=== PATIENT | female | born 1955 | race Caucasian/White ===

== ENCOUNTER 2023-08-04 09:05 | Outpatient (CLI) | payer MEDICARE, SELFPAY ==
--- NOTE | ~2023-08-04 | XR_ITS ---
Left Knee Technique: AP, lateral, and sunrise views were obtained. Clinical History: Pain Findings: No acute fracture or dislocation is seen. There is advanced tricompartment osteophytosis, w ith extensive osteophyte formation and medial compartment narrowing in particular. Possible small loo se body adjacent to the medial condyle distal femur. There are old, healed fracture deformities of th e proximal tibia and fibula, with intramedullary rods or pins in the tibia. Soft tissues are unremark able. No joint effusion is seen. Impression: No acute abnormalities. Severe tricompartmental osteoarthritis, as detailed above. Possible loose body, as above. Old, healed fractures of the proximal tibia and fibula, as detailed above. Reviewed, dictated and finalized at location M. Impression: No acute abnormalities. Severe tricompartmental osteoarthritis, as detailed above. Possible loose body, as above. Old, healed fractures of the proximal tibia and fibula, as detailed above.
--- NOTE | ~2023-08-04 | XR_ITS ---
Right Knee Technique: AP, lateral, and oblique views were obtained. Clinical History: Pain Findings: No fracture or dislocation is seen. There is advanced tricompartmental degenerative change with prominent ossified formation as well as medial compartment narrowing. There are old, healed frac ture deformities of the proximal fibular and tibial shafts. Intramedullary orthopedic alycia/pins are pr esent within the tibia.. Soft tissues are unremarkable. No joint effusion is seen. Impression: No acute abnormality evident. Advanced tricompartmental degenerative change, as detailed above. Old, healed fracture deformities of the proximal tibia and fibula, as detailed above. Reviewed, dictated and finalized at location M. Impression: No acute abnormality evident. Advanced tricompartmental degenerative change, as detailed above. Old, healed fracture deformities of the proximal tibia and fibula, as detailed above.
== END 2023-08-04 09:06 ==
PROVIDERS: PCP Family Medicine; Visit Provider Family Medicine
DX: M17.0 Bilateral primary osteoarthritis of knee (principal)
CPT/HCPCS: 73564

== ENCOUNTER 2024-08-10 20:45 | Inpatient (IN) | payer MEDICARE, SELFPAY ==
[2024-08-10] VITALS (8 sets, daily range): BP systolic 97–168; BP diastolic 67–110; PULSE 102–109; RESP 21–30; TEMP 36.7; O2SAT 97–99
--- NOTE | ~2024-08-10 | XR_ITS ---
XR chest 1V portable Ordering provider: Mary Ya PA-C History: 69 years Female with . sepsis . Comparison: December 18, 2005 FINDINGS: MEDIASTINUM: The cardiac silhouette is slightly enlarged. Congestive myron. LUNGS: No infiltrates, effusions or pneumothorax. OTHER: No free air under the diaphragm. IMPRESSION: Cardiomegaly. Congestive myron. No acute lung lesion seen. Reviewed, dictated and finalized at location A.
--- NOTE | ~2024-08-10 | CT_ITS ---
CT of the Abdomen and Pelvis: Indication: Edema, erythema, drainage from groin/abdomen Technique: 2.5 mm axial scans were obtained through the abdomen and pelvis following intravenous adm inistration of 100 cc of Omnipaque 350. Dose reduction technique was used on this scan by utilizing a utomated exposure control and iterative reconstruction technique. The dose-length product (DLP) was 1 541.93 mGy-cm. Findings: Scans through the lung bases are unremarkable. The liver, spleen, pancreas, gallbladder, left adrenal gland and kidneys are within normal limits. Co arse calcification in the right adrenal gland is suggestive of sequela of prior hemorrhage or infecti on. No evidence of aortic aneurysm. No retroperitoneal lymphadenopathy. No bowel obstruction or bowel wall thickening. There is no evidence to suggest acute appendicitis. Images through the pelvis were performed. Urinary bladder unremarkable. No pelvic mass seen, though t here is somewhat asymmetric enlargement of the right piriformis muscle as compared to the left. Shott y right inguinal lymph nodes are present. Impression: No abscess identified. Shotty right inguinal lymph nodes are present, nonspecific. Asymmetric enlargement right piriformis muscle as compared to left. This could reflect asymmetric lef t-sided atrophy versus hypertrophy of the right side. Correlate clinically. No distinct mass evident. Reviewed, dictated and finalized at location . Impression: No abscess identified. Shotty right inguinal lymph nodes are present, nonspecif ic. Asymmetric enlargement right piriformis muscle as compared to left. This could reflect asymmetric left-sided atrophy versus hypertrophy of the right side. Cor relate clinically. No distinct mass evident.
--- NOTE | 2024-08-10 21:18 | ED_ITS ---
HPI - Fall General Chief Complaint: Fall <Mary Ya PA-C - Last Filed: 08/12/24 11:18> Stated Complaint: fall <NURY Triana Last Filed: 08/12/24 11:18> Time Seen by Provider: 08/10/24 21:02 <NURY Triana Last Filed: 08/12/24 11:18> Source: patient <NURY Triana Last Filed: 08/12/24 11:18> Mode of arrival: EMS <NURY Triana Last Filed: 08/12/24 11:18> Limitations: no limitations <NURY Triana Last Filed: 08/12/24 11:18> History of Present Illness HPI Narrative: This is a 69 year old female that presents to the ER for generalized weakness, inability to care for herself. Hoarding conditions noted in the home. Has had to call EMS multiple times for assistance. Patient soaked in urine, feces covering her upon arrival. Reports a rash to her abdomen that has been ongoing over the last couple of weeks. <NURY Triana Last Filed: 08/12/24 11:18> Related Data Home Medications: Home Medications ?Medication ?Instructions ?Recorded ?Confirmed ?Last Taken ?Type aspirin 81 mg tablet,delayed 81 mg PO DAILY 02/19/19 08/11/24 Unknown History release albuterol sulfate 90 mcg/actuation 1 puff inhalation Q6H PRN 07/25/24 08/11/24 Unknown History aerosol inhaler shortness of breath or wheezing <NURY Triana Last Filed: 08/12/24 11:18> Allergies/Adverse Reactions: Allergies Allergy/AdvReac Type Severity Reaction Status Date / Time Penicillins Allergy Intermediate Unknown Verified 08/06/24 08:00 watermelon AdvReac Intermediate Unknown Verified 08/06/24 08:00 atorvastatin AdvReac muscle Verified 08/06/24 08:00 cramps <NURY Triana Last Filed: 08/12/24 11:18> Review of Systems 2 Review of Systems: CONSTITUTIONAL: Denies fever GASTROINTESTINAL: Denies abdominal pain, nausea, vomiting GENITOURINARY: Reports dysuria <Mary Ya PA-C - Last Filed: 08/12/24 11:18> All systems reviewed & are unremarkable except as noted in HPI and below < Mary Ya PA-C - Last Filed: 08/12/24 11:18> [facility] Past Medical History Medical History: Medical History (Updated 08/12/24 @ 11:16 by Mary Ya PA-C) Essential (primary) hypertension Iron deficiency anemia Prediabetes Vitamin D deficiency Hepatitis C antibody test negative (11/30/16) Esophageal reflux Meniere's disease, unspecified ear Mixed hyperlipidemia <Mary Ya PA-C - Last Filed: 08/12/24 11:18> Surgical History Surgical History: Surgical History (Updated 08/11/24 @ 03:41 by Eve Cunningham PA-C) History of surgery on lower extremity bilateral lower extremity surgery to correct genu varum <Mary Ya PA-C - Last Filed: 08/12/24 11:18> Family History Family History: Family History Father Family history of premature coronary heart disease Hypertension Family history of elevated blood lipids Grandparent Hypertension Mother Hypertension Family history of elevated blood lipids <Mary Ya PA-C - Last Filed: 08/12/24 11:18> Social History Social History: Social History (Updated 08/11/24 @ 03:19 by Eve Cunningham PA-C) Social History: Surrogate medical decision maker: Hortencia Loving, cousin ([phone]). Code status: Full code. Smoking status: Never smoker Second hand tobacco smoke exposure: No Alcohol intake: never Substance use: never Substance use type: does not use Do You Feel Safe in your Home?: Yes Lack of Transportation: No Lack of Food: Never True Current Housing: I Have Housing Concerned About Future Housing: No Difficulty Paying Gas/Electric Bills: No Difficulty Paying for Meds: No Currently Unemployed: No Education: Bachelor's Degree Difficulty w/ Childcare or Family Care: No Living arrangements: alone Additional living arrangements comments: The patient lives in her own home with her dog. 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 Spiritual care concerns: No Agree to blood products: Yes <Mary Ya PA-C - Last Filed: 08/12/24 11:18> Exam 2 Narrative: GENERAL: Well-appearing, well-nourished, and in no acute distress. HEAD: Normocephalic, atraumatic. EYES: EOMI. ENT: Nares clear, no rhinorrhea or epistaxis. Mucous membranes moist. Oropharynx without tonsillar hypertrophy exudate or other lesions. NECK: Supple. No adenopathy or masses. CHEST: Clear to auscultation. No respiratory distress. No wheezes rales or rhonchi HEART: Regular rate and rhythm. No murmur heard. Normal peripheral pulses. ABDOMEN: Soft, nontender, nondistended, normal active bowel sounds. EXTREMITIES: Normal range of motion. No edema. SKIN: Warm, dry. Beefy red rash with scattered ulcerations to the mid abdomen into the groin and down to the mid thigh NEURO: No focal deficits. Alert and oriented x3. PSYCH: Normal mood and affect <Mary Ya PA-C - Last Filed: 08/12/24 11:18> Course Course Emergency Course: Patient was updated on her blood workup, need for admission. Pending CT scan results, care taken over by Dr. Berrios <Mary Ya PA-C - Last Filed: 08/12/24 11:18> Vital Signs Vital signs: Vital Signs Temperature 98.1 F 08/10/24 21:00 Pulse Rate 107 H 08/10/24 21:00 Respiratory Rate 28 H 08/10/24 21:00 Blood Pressure 107/67 08/10/24 21:00 Pulse Oximetry 98 08/10/24 21:00 Oxygen Delivery Room Air 08/10/24 21:00 Temperature 98.4 F 08/12/24 03:22 Pulse Rate 64 08/12/24 08:37 Respiratory Rate 20 08/12/24 03:22 Blood Pressure 136/76 08/12/24 03:22 Pulse Oximetry 95 08/12/24 03:22 Oxygen Delivery Room Air 08/12/24 10:16 Fraction of Inspired Oxygen 08/11/24 20:50 <Mary Ya PA-C - Last Filed: 08/12/24 11:18> Vital Signs Temperature 98.1 F 08/10/24 21:00 Pulse Rate 107 H 08/10/24 21:00 Respiratory Rate 28 H 08/10/24 21:00 Blood Pressure 107/67 08/10/24 21:00 Pulse Oximetry 98 08/10/24 21:00 Oxygen Delivery Room Air 08/10/24 21:00 Temperature 98.4 F 08/12/24 03:22 Pulse Rate 64 08/12/24 08:37 Respiratory Rate 20 08/12/24 03:22 Blood Pressure 136/76 08/12/24 03:22 Pulse Oximetry 95 08/12/24 03:22 Oxygen Delivery Room Air 08/12/24 10:16 Fraction of Inspired Oxygen 21 08/11/24 20:50 <Huong Berrios MD - Last Filed: 08/11/24 03:26> MDM - Fall MDM Narrative Medical decision making narrative: Patient presents here from home due to not being able to get back up, per EMS had been found practically fused to the couch; nursing staff here had to use a knife to cut her underwear off due to how it was covered with old urine, secretions. Patient had not been able to get up on her own. On exam there is a extensive rash covering her abdominal wall and down into her intertriginous folds which are slightly tender to palpation. Broad workup initiated notable for white count 13.8, urinalysis without any obvious UTI, CT showing cellulitis thankfully without signs of Brown's gangrene. I do feel patient needs to be admitted at this time given her extensive skin infection and obvious need for help in caring for herself. Patient agreeable to plan. Discussed with hospitalist for admission. <Huong Berrios MD - Last Filed: 08/11/24 03:26> Lab Data Attestation: I reviewed the patient's lab results. <Mary Ya PA-C - Last Filed: 08/12/24 11:18> Result diagrams: 08/12/24 04:47 08/12/24 04:47 <Mary Ya PA-C - Last Filed: 08/12/24 11:18> Labs: Lab Results 08/10/24 08/10/24 08/10/24 Range/Units 21:54 21:55 22:03 WBC 13.8 H (4.5-10.0) K/mm3 RBC 4.57 (4.2-5.4) M/mm3 Hgb 11.3 L (12.0-15.0) g/dL Hct 36.8 L (37.0-47.0) % MCV 80.5 (80-100) fl MCH 24.7 L (26-34) pg MCHC 30.7 L (32-36) g/dl RDW 16.6 H (11.5-14.5) % Plt Count 561 H (150-375) k/mm3 MPV 9.1 (7.4-10.4) fl Immature Gran % (Auto) 1.2 H (0-0.5) % Neut % (Auto) 83.9 H (45.5-73.1) % Lymph % (Auto) 7.0 L (18.3-44.2) % [place] % (Auto) 7.2 (2.6-8.5) % Eos % (Auto) 0.2 (0-4.4) % Baso % (Auto) 0.5 (0.2-1.2) % Lymph # (Auto) 0.97 (0.9-3.2) K/mm3 [place] # (Auto) 1.0 H (0.1-0.6) K/mm3 Eos # (Auto) 0.0 (0-0.3) K/mm3 Baso # (Auto) 0.1 (0.0-0.1) K/mm3 Abs Immat Gran (auto) 0.17 H (0.00-0.031) K/mm3 Absolute Neuts (auto) 11.6 H (1.3-6.7) K/mm3 Absolute Nucleated RBC 0.000 (0.0-0.012) K/mm3 Nucleated RBC % 0.0 (0.0-0.2) % PT 14.8 H (11.1-14.7) Seconds INR 1.1 APTT 31.5 (22.3-36.8) Seconds Sodium 132 L (137-145) mmol/L Potassium 4.0 (3.4-5.0) mmol/L Chloride 100 (98-107) mmol/L Carbon Dioxide 22 (22-30) mmol/L Anion Gap 10 (4-12) mmol/L BUN 16 (7-17) mg/dL Creatinine 0.80 (0.7-1.0) mg/dL Estim Creat Clear Calc 74 ml/min Estimated GFR > 60 (59 - ) Glucose 136 H (65-110) mg/dL Lactic Acid 1.6 (0.7-2.0) mmol/L Calcium 8.6 (8.4-10.2) mg/dL Total Bilirubin 0.9 (0.2-1.3) mg/dL AST 105 H (14-36) U/L ALT 34 (6-35) U/L Alkaline Phosphatase 81 (38-126) U/L C-Reactive Protein 15.5 H (<1.0) mg/dL Total Protein 7.0 (6.3-8.2) g/dL Albumin 3.4 L (3.5-5.1) g/dL Urine Color Dark yellow (Yellow) Urine Appearance Cloudy H (Clear) Urine pH 5.5 (5.0-9.0) Ur Specific Wisner 1.029 (1.001-1.035) Urine Protein 2+ H (Negative) mg/dL Urine Glucose (UA) Trace H (Negative) mg/dL Urine Ketones 1+ H (Negative) mg/dL Ur Blood (Man) Negative (Negative) Urine Nitrate Negative (Negative) Urine Bilirubin 2+ H (Negative) Urine Urobilinogen 1.0 (<2.0) mg/dL Add Ur Microanalysis Reviewed Leukocyte Esterase Rfl Trace H (Negative) LUCIANO/UL Urine RBC 6-10 H (0-2) /hpf Urine WBC 6-10 H (0-3) /hpf Ur Squamous Epith Cells Occasional (Few) /hpf Urine Bacteria None seen /hpf Urine Casts >20 Hyaline Casts Present (None) /lpf Urine Mucus Present /lpf <Mary Ya PA-C - Last Filed: 08/12/24 11:18> Lab Results 08/10/24 08/10/24 08/10/24 Range/Units 21:54 21:55 22:03 WBC 13.8 H (4.5-10.0) K/mm3 RBC 4.57 (4.2-5.4) M/mm3 Hgb 11.3 L (12.0-15.0) g/dL Hct 36.8 L (37.0-47.0) % MCV 80.5 (80-100) fl MCH 24.7 L (26-34) pg MCHC 30.7 L (32-36) g/dl RDW 16.6 H (11.5-14.5) % Plt Count 561 H (150-375) k/mm3 MPV 9.1 (7.4-10.4) fl Immature Gran % (Auto) 1.2 H (0-0.5) % Neut % (Auto) 83.9 H (45.5-73.1) % Lymph % (Auto) 7.0 L (18.3-44.2) % [place] % (Auto) 7.2 (2.6-8.5) % Eos % (Auto) 0.2 (0-4.4) % Baso % (Auto) 0.5 (0.2-1.2) % Lymph # (Auto) 0.97 (0.9-3.2) K/mm3 [place] # (Auto) 1.0 H (0.1-0.6) K/mm3 Eos # (Auto) 0.0 (0-0.3) K/mm3 Baso # (Auto) 0.1 (0.0-0.1) K/mm3 Abs Immat Gran (auto) 0.17 H (0.00-0.031) K/mm3 Absolute Neuts (auto) 11.6 H (1.3-6.7) K/mm3 Absolute Nucleated RBC 0.000 (0.0-0.012) K/mm3 Nucleated RBC % 0.0 (0.0-0.2) % PT 14.8 H (11.1-14.7) Seconds INR 1.1 APTT 31.5 (22.3-36.8) Seconds Sodium 132 L (137-145) mmol/L Potassium 4.0 (3.4-5.0) mmol/L Chloride 100 (98-107) mmol/L Carbon Dioxide 22 (22-30) mmol/L Anion Gap 10 (4-12) mmol/L BUN 16 (7-17) mg/dL Creatinine 0.80 (0.7-1.0) mg/dL Estim Creat Clear Calc 74 ml/min Estimated GFR > 60 (59 - ) Glucose 136 H (65-110) mg/dL Lactic Acid 1.6 (0.7-2.0) mmol/L Calcium 8.6 (8.4-10.2) mg/dL Total Bilirubin 0.9 (0.2-1.3) mg/dL AST 105 H (14-36) U/L ALT 34 (6-35) U/L Alkaline Phosphatase 81 (38-126) U/L C-Reactive Protein 15.5 H (<1.0) mg/dL Total Protein 7.0 (6.3-8.2) g/dL Albumin 3.4 L (3.5-5.1) g/dL Urine Color Dark yellow (Yellow) Urine Appearance Cloudy H (Clear) Urine pH 5.5 (5.0-9.0) Ur Specific Wisner 1.029 (1.001-1.035) Urine Protein 2+ H (Negative) mg/dL Urine Glucose (UA) Trace H (Negative) mg/dL Urine Ketones 1+ H (Negative) mg/dL Ur Blood (Man) Negative (Negative) Urine Nitrate Negative (Negative) Urine Bilirubin 2+ H (Negative) Urine Urobilinogen 1.0 (<2.0) mg/dL Add Ur Microanalysis Reviewed Leukocyte Esterase Rfl Trace H (Negative) LUCIANO/UL Urine RBC 6-10 H (0-2) /hpf Urine WBC 6-10 H (0-3) /hpf Ur Squamous Epith Cells Occasional (Few) /hpf Urine Bacteria None seen /hpf Urine Casts >20 Hyaline Casts Present (None) /lpf Urine Mucus Present /lpf <Huong Berrios MD - Last Filed: 08/11/24 03:26> Imaging Data Radiologist's impression: ITS Impressions Chest X-Ray 08/10/24 22:04 IMPRESSION: Cardiomegaly. Congestive myron. No acute lung lesion seen. CT of the Abdomen and Pelvis: Indication: Edema, erythema, drainage from groin/abdomen Technique: 2.5 mm axial scans were obtained through the abdomen and pelvis following intravenous administration of 100 cc of Omnipaque 350. Dose reduction technique was used on this scan by utilizing automated exposure control and iterative reconstruction technique. The dose-length product (DLP) was 1541.93 mGy-cm. Findings: Scans through the lung bases are unremarkable. The liver, spleen, pancreas, gallbladder, left adrenal gland and kidneys are within normal limits. Coarse calcification in the right adrenal gland is suggestive of sequela of prior hemorrhage or infection. No evidence of aortic aneurysm. No retroperitoneal lymphadenopathy. No bowel obstruction or bowel wall thickening. There is no evidence to suggest acute appendicitis. Images through the pelvis were performed. Urinary bladder unremarkable. No pelvic mass seen, though there is somewhat asymmetric enlargement of the right piriformis muscle as compared to the left. Shotty right inguinal lymph nodes are present. Impression: No abscess identified. Shotty right inguinal lymph nodes are present, nonspecific. Asymmetric enlargement right piriformis muscle as compared to left. This could reflect asymmetric left-sided atrophy versus hypertrophy of the right side. Correlate clinically. No distinct mass evident. <Mary Ya PA-C - Last Filed: 08/12/24 11:18> Critical Care Time Critical Care Time Critical Care Time: Yes <Huong Berrios MD - Last Filed: 08/11/24 03:26> Total Critical Care Time: 35 <Mary Ya PA-C - Last Filed: 08/12/24 11:18> 31 <Huong Berrios MD - Last Filed: 08/11/24 03:26> Discharge Plan Discharge Clinical Impression: Adult failure to thrive Cellulitis Qualifiers: Site of cellulitis: trunk Site of cellulitis of trunk: abdominal wall Qualified Code(s): L03.311 - Cellulitis of abdominal wall <Mary Ya PA-C - Last Filed: 08/12/24 11:18> Patient Disposition: Still a Patient <NURY Triana Last Filed: 08/12/24 11:18> Condition: Stable <NURY Triana Last Filed: 08/12/24 11:18>
[2024-08-10 22:02] LABS: Basophils Absolute Auto 0.1 K/mm3 (0.0-0.1); Basophils Percent Auto 0.5 % (0.2-1.2); Eosinophils Percent Auto 0.2 % (0-4.4); Hematocrit 36.8 % (37.0-47.0); Hemoglobin 11.3 g/dL (12.0-15.0); Immature Granulocyte Absolute 0.17 K/mm3 (0.00-0.031); Immature Granulocyte Percent A 1.2 % (0-0.5); Lymphocytes Absolute Auto 0.97 K/mm3 (0.9-3.2); Mean Corpuscular HGB Conc 30.7 g/dl (32-36); Mean Corpuscular Hemoglobin 24.7 pg (26-34); Mean Corpuscular Volume 80.5 fl (80-100); Mean Platelet Volume 9.1 fl (7.4-10.4); Monocytes Percent Auto 7.2 % (2.6-8.5); Neutrophils Absolute Auto 11.6 K/mm3 (1.3-6.7); Neutrophils Percent Auto 83.9 % (45.5-73.1); Platelet Count Result 561 k/mm3 (150-375); Red Blood Count 4.57 M/mm3 (4.2-5.4); Red Cell Distribution Width 16.6 % (11.5-14.5); White Blood Count 13.8 K/mm3 (4.5-10.0)
[2024-08-10 22:11] LABS: Lactic Acid Reflex 1.6 mmol/L (0.7-2.0)
[2024-08-10 22:17] LABS: Alanine Aminotransferase 34 U/L (6-35); Albumin Level 3.4 g/dL (3.5-5.1); Alkaline Phosphatase 81 U/L (38-126); Anion Gap 10 mmol/L (4-12); Aspartate Amino Transferase 105 U/L (14-36); Bilirubin,Total 0.9 mg/dL (0.2-1.3); Blood Urea Nitrogen 16 mg/dL (7-17); Calcium 8.6 mg/dL (8.4-10.2); Carbon Dioxide 22 mmol/L (22-30); Chloride 100 mmol/L (98-107); Estimated CRCL calculation 74 ml/min; Estimated Glomerular Filt Rate > 60; Glucose 136 mg/dL (65-110); Sodium 132 mmol/L (137-145)
[2024-08-10 22:23] LABS: INR 1.1; Prothrombin Time 14.8 Seconds (11.1-14.7)
[2024-08-10 22:24] LABS: Partial Thromboplastin Time 31.5 Seconds (22.3-36.8)
[2024-08-10 22:27] LABS: Add Urine Microscopic? YES; Appearance Urine Cloudy (Clear); Bacteria Urine None Seen /hpf; Bilirubin Urine 2+ (Negative); Blood Urine Negative (Negative); Color Urine Dark Yellow (Yellow); Glucose Urine UA Trace mg/dL (Negative); Hyaline Casts Urine Present /lpf; Ketones Urine 1+ mg/dL (Negative); Leukocyte Esterase Ur Trace LEU/UL (Negative); Mucus Urine Present /lpf; Need Manual Microscopic Reviewed; Nitrate Urine Negative (Negative); Non Pathogenic Casts >20; Protein Urine 2+ mg/dL (Negative); Specific Grav Ur 1.029 (1.001-1.035); Squamous Epithelial Cell Urine Occasional /hpf (Few); pH Urine 5.5 (5.0-9.0)
[2024-08-10 22:28] LABS: CRP 15.5 mg/dL (<1.0)
[2024-08-10] MEDS: SODIUM CHLORIDE 0.9% IV 1,000 ML 999 ML IV CONT (23:36)
[2024-08-10] MEDS: FLUCONAZOLE 150 MG TABLET PO (23:37)
[2024-08-10] MEDS: ceFAZolin 1 GM/NS 50 ML 1 GM/50 ML BAG IVPB (23:46)
[2024-08-11] VITALS (11 sets, daily range): BP systolic 125–175; BP diastolic 76–111; PULSE 74–105; RESP 17–31; TEMP 36.1–36.5; O2SAT 94–98; BMI 52.7
--- NOTE | 2024-08-11 02:45 | P.HP_ITS ---
H&P: HPI History of Present Illness Date/Time: 08/11/24 02:45 Chief Complaint: Fall. Narrative: This is a pleasant 69-year-old female with prediabetes, hypertension, hyperlipidemia, and Meniere's disease who presented to the emergency department via EMS from home for evaluation after a fall. EMS has been called house several times for lift assist and last evening she allowed them to bring her to the hospital as she is just not feeling well. She believes that her falls are mostly due to her left knee giving out. She uses a cane when out in the community but she admits to hoarding conditions in her house which precludes her from using it inside the home. She has noticed redness and swelling of the skin on her lower abdomen and groin with malodorous discharge that has been ongoing for an extended period of time however it has been worse in the last several weeks. It is exquisitely tender to even mild palpation. With further questioning she admits that she has difficulties getting to the bathroom due to her home situation and that is not unusual for her to be incontinent. She arrived to the emergency department in underwear which was soiled with stool and urine. She denies fever, chills, sweats, nausea, vomiting, diarrhea, and dysuria. She also denies focal weakness and paresthesias. No syncope or near syncope. In the ED: Vital signs on arrival include a temperature of 98.1?, blood pressure 107/67, pulse 107, respiratory 20, SpO2 98% on room air. Labs were significant for WBC count of 13.8, hemoglobin 11.3, platelet 561, sodium 132, glucose 136, lactic acid 1.6, AST 105, CRP 15.5. Urinalysis is positive for 2+ protein, trace glucose, 1+ ketones, trace leukocyte esterase, 6 to 10 RBC and WBC, and occasional squamous cells. No bacteria seen on microscopy. CT scan showed edema or cellulitis of intravenous folds without tissue abscess or emphysema, possible cystitis. She was given cefazolin 1 g and fluconazole 150 mg and she is being admitted in this setting for further treatment. Review of Systems Review of Systems: 12 systems were reviewed and are negativ e except for as per HPI. [facility] Past Medical History Medical History (Updated 08/11/24 @ 03:26 by Eve G Gerling, PA-C) Essential (primary) hypertension Iron deficiency anemia Prediabetes Vitamin D deficiency Hepatitis C antibody test negative (11/30/16) Esophageal reflux Meniere's disease, unspecified ear Mixed hyperlipidemia Surgical History Surgical History (Updated 08/11/24 @ 03:41 by Eve Cunningham PA-C) History of surgery on lower extremity bilateral lower extremity surgery to correct genu varum Family History Family History Father Family history of premature coronary heart disease Hypertension Family history of elevated blood lipids Grandparent Hypertension Mother Hypertension Family history of elevated blood lipids Social History Social History (Updated 08/11/24 @ 03:19 by Eve Cunningham PA-C) Social History: Surrogate medical decision maker: Hortencia Inder, cousin ([phone]). Code status: Full code. Smoking status: Never smoker Second hand tobacco smoke exposure: No Alcohol intake: never Substance use: never Substance use type: does not use Do You Feel Safe in your Home?: Yes Lack of Transportation: No Lack of Food: Never True Current Housing: I Have Housing Concerned About Future Housing: No Difficulty Paying Gas/Electric Bills: No Difficulty Paying for Meds: No Currently Unemployed: No Education: Bachelor's Degree Difficulty w/ Childcare or Family Care: No Living arrangements: alone Additional living arrangements comments: The patient lives in her own home with her dog. 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 Agree to blood products: Yes Meds Home Medications and Allergies Home Medications ?Medication ?Instructions ?Recorded ?Confirmed ?Type aspirin 81 mg tablet,delayed 81 mg PO DAILY 02/19/19 07/25/24 History release furosemide 20 mg tablet 20 mg PO QAM PRN edema #90 tabs 05/02/23 07/25/24 Rx pravastatin 20 mg tablet 20 mg PO QHS #90 tabs 05/02/23 07/25/24 Rx clindamycin phosphate 1 % topical 1 applic topical BID #60 grams 08/11/23 07/25/24 Rx gel celecoxib 200 mg capsule See Rx Instructions .Route 11/27/23 07/25/24 Rx .COMPLEX #30 caps azelastine 137 mcg (0.1 %) nasal 2 spray intranasal Q12H #30 mL 12/19/23 07/25/24 Rx spray Kathy-D 12 Hour 60 mg-120 mg See Rx Instructions .Route 12/25/23 07/25/24 Rx tablet,extended release .COMPLEX #60 tabs (fexofenadine-pseudoephedrine) ergocalciferol (vitamin D2) 1,250 See Rx Instructions .Route 12/25/23 07/25/24 Rx mcg (50,000 unit) capsule .COMPLEX #12 caps metoclopramide HCl 10 mg tablet See Rx Instructions .Route 01/08/24 07/25/24 Rx .COMPLEX #270 tabs betamethasone dipropionate 0.05 % 1 applic topical DAILY PRN itching 02/27/24 07/25/24 Rx topical ointment #45 grams esomeprazole magnesium 40 mg 40 mg PO DAILY #90 caps 02/27/24 07/25/24 Rx capsule,delayed release telmisartan 40 mg tablet 40 mg PO DAILY #90 tabs 02/27/24 07/25/24 Rx amlodipine 2.5 mg tablet See Rx Instructions .Route 03/25/24 07/25/24 Rx .COMPLEX #90 tabs carisoprodol 350 mg tablet 350 mg PO TID #270 tabs 06/28/24 07/25/24 Rx ferrous sulfate 324 mg (65 mg 324 mg PO BID #180 tabs 07/11/24 07/25/24 Rx iron) tablet,delayed release albuterol sulfate 90 mcg/actuation inhalation 07/25/24 07/25/24 History aerosol inhaler propranolol 10 mg tablet 10 mg PO Q12H #180 tabs 07/25/24 07/25/24 Rx clotrimazole 1 % topical cream See Rx Instructions .Route 08/05/24 Rx .COMPLEX #45 grams meclizine 25 mg tablet See Rx Instructions .Route 08/05/24 Rx .COMPLEX #120 tabs Allergies Allergy/AdvReac Type Severity Reaction Status Date / Time Penicillins Allergy Intermediate Unknown Verified 08/06/24 08:00 watermelon AdvReac Intermediate Unknown Verified 08/06/24 08:00 atorvastatin AdvReac muscle Verified 08/06/24 08:00 cramps Vital Signs Vital Signs - 24 hr 08/10/24 21:00 08/10/24 21:01 08/10/24 21:15 Temperature 98.1 F Pulse Rate 107 H 109 H 106 H Respiratory Rate 28 H 28 H 30 H Blood Pressure 107/67 107/67 100/85 Pulse Oximetry 98 98 97 Oxygen Delivery Room Air 08/10/24 21:31 08/10/24 21:50 08/10/24 21:51 Temperature Pulse Rate 102 H 103 H 102 H Respiratory Rate 27 H 30 H 28 H Blood Pressure 115/78 120/85 Pulse Oximetry 98 98 Oxygen Delivery 08/10/24 22:15 08/10/24 23:31 08/11/24 01:16 Temperature Pulse Rate 109 H 102 H 104 H Respiratory Rate 30 H 21 H 31 H Blood Pressure 97/75 L 168/110 H 167/111 H Pulse Oximetry 99 97 98 Oxygen Delivery Exam Narrative: General: Well-developed, nontoxic-appearing female supine in bed in no acute distress. Weight: 112.7 kg. BMI: 41.3. HEENT: PERRL, EOMI. Sclera anicteric. Oral mucosa moist. Crowded oropharynx. Neck: Supple. Limited due to neck circumference. Respiratory: Lungs are clear to auscultation bilaterally. Cardiovascular: Regular rate and rhythm with S1-S2. Gastrointestinal: Abdomen is soft and morbidly obese with positive bowel s ounds. Skin: Warm and dry. Very large area erythema and irritation throughout the lower abdomen, more so on the right, extending to the intertriginous regions and on to the upper right lower extremity. There is weeping and evidence of yeast throughout the folds. This area is exquisitely tender to palpation. Redness blanches. No warmth. Extremities: No cyanosis or clubbing. Mild lower extremity edema. Neurological: Alert. Cranial nerves 2-12 are grossly intact. Speech is clear. No facial asymmetry. Generalized weakness without gross focal findings. Mild tremor of the right upper extremity which is chronic. Psychiatric: Pleasant and cooperative with appropriate mood and affect. H&P: Results Labs Labs: Short CBC 08/10/24 Range/Units 21:54 WBC 13.8 H (4.5-10.0) K/mm3 Hgb 11.3 L (12.0-15.0) g/dL Hct 36.8 L (37.0-47.0) % Plt Count 561 H (150-375) k/mm3 [facility] 08/10/24 21:55 Sodium 132 L Potassium 4.0 Chloride 100 Carbon Dioxide 22 BUN 16 Creatinine 0.80 Glucose 136 H Calcium 8.6 Liver Function 08/10/24 Range/Units 21:55 Total Bilirubin 0.9 (0.2-1.3) mg/dL AST 105 H (14-36) U/L ALT 34 (6-35) U/L Alkaline Phosphatase 81 (38-126) U/L Albumin 3.4 L (3.5-5.1) g/dL Urine 08/10/24 Range/Units 22:03 Urine Color Dark yellow (Yellow) Urine Appearance Cloudy H (Clear) Urine pH 5.5 (5.0-9.0) Ur Specific [place] 1.029 (1.001-1.035) Urine Protein 2+ H (Negative) mg/dL Urine Glucose (UA) Trace H (Negative) mg/dL Assessment and Plan Assessment and plan (1) Cellulitis: Code(s): L03.90 - Cellulitis, unspecified Status: Acute (2) Intertriginous candidiasis: Code(s): B37.2 - Candidiasis of skin and nail Status: Acute (3) Generalized weakness: Code(s): R53.1 - Weakness Status: Acute (4) Incontinence associated dermatitis: Code(s): L25.8 - Unspecified contact dermatitis due to other agents; R32 - Unspecified urinary incontinence Status: Acute (5) Prediabetes: Code(s): R73.03 - Prediabetes Status: Acute (6) Iron deficiency anemia: Code(s): D50.9 - Iron deficiency anemia, unspecified Status: Acute (7) Essential (primary) hypertension: Code(s): I10 - Essential (primary) hypertension Status: Acute Plan The patient presented to the emergency department from home for evaluation after multiple falls as detailed in HPI. Labs, imaging, EKG, and all reports were personally reviewed. Patient reviewed her falls to her left knee going up but admits that is difficult for her to get around her home due to hoarding conditions. I presume she will need to have her home cleaned prior to going back and she would likely benefit from rehab placement on discharge. Continue cefazolin for cellulitis. She received a dose of p.o. fluconazole in the ED. wound nurse has been consulted for further recommendations. Eventually she will need to get up with PT/OT. Blood pressures have been stable thus far and will be monitored. Her home medications will be reviewed and resumed as appropriate. Findings and treatment plan were discussed with the patient. Questions were solicited and answered to satisfaction. The patient's medical management will be taken over by the hospitalist team in a.m. Quality VTE Prophylaxis VTE prophylaxis: pharmacologic ordered The patient has been admitted under observation status. Hospitalist MIPS Advance Care Plan I have confirmed that the patient's Advanced Care Plan is present, code status is documented, or surrogate decision maker is listed in patient medical record.: Yes Medication Reconciliation I have utilized all available resources to obtain, update and review the patients current medications (includes all prescriptions, OTC, herbals, cannabis, and nutritional supplements).: Yes
[2024-08-11] MEDS: ENOXAPARIN 40 MG/0.4 ML SYRINGE SUB-Q (05:09)
[2024-08-11] MEDS: MECLIZINE HCL 25 MG TABLET PO ×5 (05:09→22:36)
[2024-08-11] MEDS: ACETAMINOPHEN 325 MG TABLET 650 MG PO (05:09)
--- NOTE | 2024-08-11 05:10 | ADMGEN ---
This patient, Catie Garcia, was admitted to Medical Room 249-01. Patient/family oriented to hospital policies and general routines including ID bracelet, bed and alarms, visiting hours, pain management, procedures, bathroom and other care routines, personal items, smoking policy, room service/diet, and visiting hours. Information on how to activate the Rapid Response Team has been discussed. Patient/Family are encouraged to report perceived risks to care and to ask questions if they do not understand what they are told or what they should do.
[2024-08-11 06:49] LABS: Alanine Aminotransferase 32 U/L (6-35); Albumin Level 2.7 g/dL (3.5-5.1); Alkaline Phosphatase 74 U/L (38-126); Anion Gap 7 mmol/L (4-12); Aspartate Amino Transferase 87 U/L (14-36); Bilirubin,Total 0.6 mg/dL (0.2-1.3); Blood Urea Nitrogen 15 mg/dL (7-17); Calcium 8.3 mg/dL (8.4-10.2); Carbon Dioxide 20 mmol/L (22-30); Chloride 104 mmol/L (98-107); Creatine Kinase 3135 U/L (30-135); Estimated Glomerular Filt Rate > 60; Glucose 112 mg/dL (65-110); Potassium 3.9 mmol/L (3.4-5.0); Sodium 131 mmol/L (137-145)
--- NOTE | 2024-08-11 07:37 | PM.IMPN ---
Progress Note: A&P Assessment and Plan (1) Cellulitis: Code(s): L03.90 - Cellulitis, unspecified Status: Acute Assessment and Plan: Redness and swelling of the skin on her lower abdomen and groin with malodorous discharge. CT abdomen/pelvis showed no abscess but did note asymmetric enlargement right piriformis muscle as compared to left. This could reflect asymmetric left-sided atrophy versus hypertrophy of the right side - Antibiotic: Ancef started on 08/10 - Blood cultures obtained on 08/10: pending - Groin wound culture: pending - Monitor vital signs, I&Os, neuro status and patient is a fall risk - Monitor serum electrolytes, CBC, cultures, WBC and temp curve - Wound consulted, appreciate recommendations (2) Intertriginous candidiasis: Code(s): B37.2 - Candidiasis of skin and nail Status: Acute Assessment and Plan: Redness and swelling of the skin on her lower abdomen and groin with malodorous discharge. Received a dose of p.o. fluconazole in the ED. Wound nurse has been consulted for further recommendations. (3) Generalized weakness: Code(s): R53.1 - Weakness Status: Acute Assessment and Plan: Falls are mostly due to her left knee giving out as she is unable to use her cane in the home secondary to hoarding conditions. CK elevated on admission at 3135, received 1L NS. Electrolytes and kidney function stable. Knee, left XR on 08/03 showed no acute abnormalities but severe tricompartmental osteoarthritis and old healed fractures of keshawn proximal tibia and fibula CT abdomen/pelvis showed no abscess but did note asymmetric enlargement right piriformis muscle as compared to left. This could reflect asymmetric left-sided atrophy versus hypertrophy of the right side PT/OT consulted Patient will likely need and benefit from rehab placement and she will need her home cleaned prior to return Was to obtain a cortisone shot with Dr. Ahuja on . Discussed patient with Ortho in agreement that the cortisone shot is likely not the best course of action at this time given patient's cocurrent infection. Will continue to monitor and potentially get the shot later on admission if infection improves. (4) Incontinence associated dermatitis: Code(s): L25.8 - Unspecified contact dermatitis due to other agents; R32 - Unspecified urinary incontinence Status: Acute Assessment and Plan: She admitted that she has difficulties getting to the bathroom due to her home situation and that is not unusual for her to be incontinent. Per chart review patient arrived to the emergency department in underwear which was soiled with stool and urine. Urinalysis is positive for 2+ protein, trace glucose, 1+ ketones, trace leukocyte esterase, 6-10 RBC and WBC, and occasional squamous cells. No bacteria seen. Given fluconazole in ED Started on Ancef Urine culture pending (5) Prediabetes: Code(s): R73.03 - Prediabetes Status: Acute Assessment and Plan: - monitor glucose levels with CMP, well controlled at this time - home medication - none, trying to control with diet/exercise - A1C 6.4 on 07/10/24 (6) Iron deficiency anemia: Code(s): D50.9 - Iron deficiency anemia, unspecified Status: Acute Assessment and Plan: H/H 11.3/36.8 on admission, appears around baseline Resumed patients iron supplementation No signs of active bleeding Monitor (7) Essential (primary) hypertension: Code(s): I10 - Essential (primary) hypertension Status: Acute Assessment and Plan: Chronic, continue home medications - amlodipine 2.5 mg daily - propranolol 10 mg BID, per PCP note more related to patients tremors - telmisartan 40 mg daily - blood pressures stable, continue to monitor Time Spent With Patient Time with patient: 25 - 35 minutes Subjective Date/time seen: 08/11/24 07:37 Interval history: 69-year-old female with prediabetes, hypertension, hyperlipidemia, and Meniere's disease who presented to the hospital via EMS from home for evaluation after a fall. Believes falls are mostly due to her left knee giving out as she is unable to use her cane in the home secondary to hoarding conditions. She also noted redness and swelling of the skin on her lower abdomen and groin with malodorous discharge. She admitted that she has difficulties getting to the bathroom due to her home situation and that is not unusual for her to be incontinent. Patient is pleasant sitting up in her bed with family at bedside. She states that she fell twice prior to coming in both times she was down for at least 4 hours prior to found. She denies feeling dizzy or lightheaded prior to the falls. Denies any loss of consciousness or hitting her head. She continues to endorse left knee pain stating that she was to obtain a cortisone shot with Dr. Ahuja on . Discussed patient with Ortho an agreement that the cortisone shot is likely not the best course of action at this time given patient's cocurrent infection. Will continue to monitor and potentially get the shot later on admission if infection improves. Strongly encouraged patient to work with physical therapy and discussed with her that she will likely require placement for increased strength building and at this point house is unsafe to go home given the known hoarding. She states understanding. She endorses slight pain to the abdomen and into her groin. She has no other complaints denying chest pain, palpitations, shortness of breath, nausea/vomiting. Review of Systems Review of Systems: All systems reviewed & are unremarkable except as noted in HPI and below Exam Narrative: AF HR 74 RR 20 SpO2 95 BP 149/100 General: obese female in no acute respiratory distress who is nontoxic appearing, sitting up in bed. HEENT: Normocephalic. Atraumatic. Extraocular movement intact. Sclera clear and anicteric. No facial asymmetry. Chest: Lungs are clear to auscultation bilaterlly. No wheezes or crackles. CV: Heart was regular rate and rhythm. S1-S2. No murmurs, gallops, or rubs. Abd: Abdomen was soft. Positive bowel sounds. Ext: No clubbing, cyanosis, or edema. DP pulses bilaterally. Neuro: Patient is alert. Speech is clear. Skin: Large tender and erythematous area to the lower abdomen extending into groin, more so on the right. Noted emerald within the folds. Weeping throughout. Objective Data Vital Signs Vital Signs: Vital Signs - 24 hr 08/10/24 21:00 08/10/24 21:01 08/10/24 21:15 Temperature 98.1 F Pulse Rate 107 H 109 H 106 H Respiratory Rate 28 H 28 H 30 H Blood Pressure 107/67 107/67 100/85 Pulse Oximetry 98 98 97 Oxygen Delivery Room Air 08/10/24 21:31 08/10/24 21:50 08/10/24 21:51 Temperature Pulse Rate 102 H 103 H 102 H Respiratory Rate 27 H 30 H 28 H Blood Pressure 115/78 120/85 Pulse Oximetry 98 98 Oxygen Delivery 08/10/24 22:15 08/10/24 23:31 08/11/24 01:16 Temperature Pulse Rate 109 H 102 H 104 H Respiratory Rate 30 H 21 H 31 H Blood Pressure 97/75 L 168/110 H 167/111 H Pulse Oximetry 99 97 98 Oxygen Delivery 08/11/24 02:01 08/11/24 03:01 08/11/24 04:01 Temperature Pulse Rate 105 H 103 H 101 H Respiratory Rate 17 20 19 Blood Pressure 158/107 H 175/103 H 169/105 H Pulse Oximetry 98 98 97 Oxygen Delivery 08/11/24 05:00 08/11/24 05:01 Temperature 97.0 F L Pulse Rate 99 99 Respiratory Rate 20 20 Blood Pressure 149/100 H Pulse Oximetry 95 95 Oxygen Delivery Room Air Intake/Output Intake/Output: Intake & Output 08/08/24 08/09/24 08/10/24 08/11/24 23:59 23:59 23:59 23:59 Intake Total 1050 Output Total 50 Balance -50 1050 Meds/Results Medications: Active Medications Generic Name Dose Route Start Last Admin Trade Name Freq PRN Reason Stop Dose Admin Acetaminophen 650 mg 08/11/24 03:38 08/11/24 05:09 Acetaminophen 325 Mg Tablet PO 650 mg Q6H PRN Administration Mild Pain (1-3) or Fever Cefazolin Sodium 1 gm in 50 mls @ 100 mls/hr 08/11/24 08:00 Ancef 1 Gm/Ns 50 Ml IVPB Q8H MALIHA Radiology Results: ITS Impressions Chest X-Ray 08/10/24 22:04 IMPRESSION: Cardiomegaly. Congestive myron. No acute lung lesion seen. Abdomen/Pelvis CT 08/11/24 05:41 Impression: No abscess identified. Shotty right inguinal lymph nodes are present, nonspecific. Asymmetric enlargement right piriformis muscle as compared to left. This could reflect asymmetric left-sided atrophy versus hypertrophy of the right side. Correlate clinically. No distinct mass evident. Labs Labs: Laboratory Results - last 24 hr 08/10/24 08/10/24 08/10/24 21:54 21:55 22:03 WBC 13.8 H RBC 4.57 Hgb 11.3 L Hct 36.8 L MCV 80.5 MCH 24.7 L MCHC 30.7 L RDW 16.6 H Plt Count 561 H MPV 9.1 Immature Gran % (Auto) 1.2 H Neut % (Auto) 83.9 H Lymph % (Auto) 7.[address] [place] % (Auto) 7.2 Eos % (Auto) 0.2 Baso % (Auto) 0.5 Lymph # (Auto) 0.97 [place] # (Auto) 1.0 H Eos # (Auto) 0.0 Baso # (Auto) 0.1 Abs Immat Gran (auto) 0.17 H Absolute Neuts (auto) 11.6 H Absolute Nucleated RBC 0.000 Nucleated RBC % 0.0 PT 14.8 H INR 1.1 APTT 31.5 Sodium 132 L Potassium 4.0 Chloride 100 Carbon Dioxide 22 Anion Gap 10 BUN 16 Creatinine 0.80 Estim Creat Clear Calc 74 Estimated GFR > 60 Glucose 136 H Lactic Acid 1.6 Calcium 8.6 Total Bilirubin 0.9 AST 105 H ALT 34 Alkaline Phosphatase 81 Total Creatine Kinase C-Reactive Protein 15.5 H Total Protein 7.0 Albumin 3.4 L Urine Color Dark yellow Urine Appearance Cloudy H Urine pH 5.5 Ur Specific [place] 1.029 Urine Protein 2+ H Urine Glucose (UA) Trace H Urine Ketones 1+ H Ur Blood (Man) Negative Urine Nitrate Negative Urine Bilirubin 2+ H Urine Urobilinogen 1.0 Add Ur Microanalysis Reviewed Leukocyte Esterase Rfl Trace H Urine RBC 6-10 H Urine WBC 6-10 H Ur Squamous Epith Cells Occasional Urine Bacteria None seen Urine Casts >20 Hyaline Casts Present Urine Mucus Present 08/11/24 06:14 WBC RBC Hgb Hct MCV MCH MCHC RDW Plt Count MPV Immature Gran % (Auto) Neut % (Auto) Lymph % (Auto) [place] % (Auto) Eos % (Auto) Baso % (Auto) Lymph # (Auto) [place] # (Auto) Eos # (Auto) Baso # (Auto) Abs Immat Gran (auto) Absolute Neuts (auto) Absolute Nucleated RBC Nucleated RBC % PT INR APTT Sodium 131 L Potassium 3.9 Chloride 104 Carbon Dioxide 20 L Anion Gap 7 BUN 15 Creatinine 0.62 L Estim Creat Clear Calc Not Reportable Estimated GFR > 60 Glucose 112 H Lactic Acid Calcium 8.3 L Total Bilirubin 0.6 AST 87 H ALT 32 Alkaline Phosphatase 74 Total Creatine Kinase 3135 H C-Reactive Protein Total Protein 6.0 L Albumin 2.7 L Urine Color Urine Appearance Urine pH Ur Specific [place] Urine Protein Urine Glucose (UA) Urine Ketones Ur Blood (Man) Urine Nitrate Urine Bilirubin Urine Urobilinogen Add Ur Microanalysis Leukocyte Esterase Rfl Urine RBC Urine WBC Ur Squamous Epith Cells Urine Bacteria Urine Casts Hyaline Casts Urine Mucus Quality VTE Prophylaxis VTE prophylaxis: pharmacologic ordered
[2024-08-11] MEDS: METOCLOPRAMIDE HCL 10 MG TABLET PO ×3 (09:29→17:32)
[2024-08-11] MEDS: amLODIPine BESYLATE 2.5 MG TABLET PO (09:29)
[2024-08-11] MEDS: PROPRANOLOL HCL 10 MG TABLET PO ×2 (09:29→22:37)
[2024-08-11] MEDS: ceFAZolin 1 GM/NS 50 ML 1 GM/50 ML BAG IVPB ×2 (09:29→17:31)
[2024-08-11] MEDS: PANTOPRAZOLE 40 MG TABLET PO (09:29)
[2024-08-11] MEDS: FERROUS SULFATE 325 MG TABLET DR PO ×2 (09:29→17:32)
[2024-08-11] MEDS: carisoprodoL (*CRX) 350 MG TABLET PO (09:29)
[2024-08-11] MEDS: ASPIRIN 81 MG ENTERIC TABLET PO (09:29)
[2024-08-11] MEDS: TELMISARTAN 40 MG TABLET PO (09:29)
[2024-08-11] MEDS: AZELASTINE HCL NASAL 0.1% 137 MCG/SPR 30 ML BTL 2 SPRAY NASAL (09:30)
[2024-08-11] MEDS: PRAVASTATIN SODIUM 20 MG TABLET PO (22:36)
[2024-08-12] VITALS (7 sets, daily range): BP systolic 117–145; BP diastolic 60–77; PULSE 64–69; RESP 16–20; TEMP 36.5–36.9; O2SAT 95; BMI 10.0
[2024-08-12] MEDS: ceFAZolin 1 GM/NS 50 ML 1 GM/50 ML BAG IVPB ×4 (00:54→23:55)
[2024-08-12 05:15] LABS: Hematocrit 35.7 % (37.0-47.0); Hemoglobin 10.5 g/dL (12.0-15.0); Mean Corpuscular HGB Conc 29.4 g/dl (32-36); Mean Corpuscular Hemoglobin 24.9 pg (26-34); Mean Corpuscular Volume 84.8 fl (80-100); Mean Platelet Volume 9.1 fl (7.4-10.4); Platelet Count Result 510 k/mm3 (150-375); Red Blood Count 4.21 M/mm3 (4.2-5.4); Red Cell Distribution Width 16.8 % (11.5-14.5); White Blood Count 11.5 K/mm3 (4.5-10.0)
[2024-08-12 05:26] LABS: Alanine Aminotransferase 28 U/L (6-35); Albumin Level 2.9 g/dL (3.5-5.1); Alkaline Phosphatase 71 U/L (38-126); Anion Gap 8 mmol/L (4-12); Aspartate Amino Transferase 57 U/L (14-36); Bilirubin,Total 0.3 mg/dL (0.2-1.3); Blood Urea Nitrogen 13 mg/dL (7-17); Carbon Dioxide 22 mmol/L (22-30); Chloride 100 mmol/L (98-107); Estimated Glomerular Filt Rate > 60; Glucose 96 mg/dL (65-110); Potassium 3.3 mmol/L (3.4-5.0); Sodium 130 mmol/L (137-145)
[2024-08-12] MEDS: METOCLOPRAMIDE HCL 10 MG TABLET PO ×3 (05:53→17:18)
[2024-08-12] MEDS: TELMISARTAN 40 MG TABLET PO (08:36)
[2024-08-12] MEDS: MECLIZINE HCL 25 MG TABLET PO ×4 (08:36→20:33)
[2024-08-12] MEDS: amLODIPine BESYLATE 2.5 MG TABLET PO (08:36)
[2024-08-12] MEDS: ASPIRIN 81 MG ENTERIC TABLET PO (08:37)
[2024-08-12] MEDS: PANTOPRAZOLE 40 MG TABLET PO (08:37)
[2024-08-12] MEDS: FERROUS SULFATE 325 MG TABLET DR PO ×2 (08:37→17:18)
[2024-08-12] MEDS: PROPRANOLOL HCL 10 MG TABLET PO ×2 (08:37→20:32)
[2024-08-12] MEDS: carisoprodoL (*CRX) 350 MG TABLET PO ×3 (08:37→17:18)
--- NOTE | 2024-08-12 09:01 | PM.IMPN ---
Progress Note: A&P Assessment and Plan (1) Cellulitis: Code(s): L03.90 - Cellulitis, unspecified Status: Acute Assessment and Plan: Redness and swelling of the skin on her lower abdomen and groin with malodorous discharge. CT abdomen/pelvis showed no abscess - Antibiotic: Ancef started on 08/10 - Blood cultures obtained on 08/10: NGTD - Groin wound culture: pending - Monitor vital signs, I&Os, neuro status and patient is a fall risk - Monitor serum electrolytes, CBC, cultures, WBC and temp curve - Wound consulted, appreciate recommendations: antifungal powder (2) Intertriginous candidiasis: Code(s): B37.2 - Candidiasis of skin and nail Status: Acute Assessment and Plan: Redness and swelling of the skin on her lower abdomen and groin with malodorous discharge. Received a dose of p.o. fluconazole in the ED. Wound nurse has been consulted for further recommendations: antifungal powder Improving. (3) Generalized weakness: Code(s): R53.1 - Weakness Status: Acute Assessment and Plan: Falls are mostly due to her left knee giving out as she is unable to use her cane in the home secondary to hoarding conditions. CK elevated on admission at 3135, received 1L NS. Electrolytes and kidney function stable. Knee, left XR on 08/03 showed no acute abnormalities but severe tricompartmental osteoarthritis and old healed fractures of keshawn proximal tibia and fibula CT abdomen/pelvis showed no abscess but did note asymmetric enlargement right piriformis muscle as compared to left. This could reflect asymmetric left-sided atrophy versus hypertrophy of the right side PT/OT consulted: SNF Patient will likely need and benefit from rehab placement and she will need her home cleaned prior to return Was to obtain a cortisone shot with Dr. Ahuja on . Discussed patient with Ortho in agreement that the cortisone shot is likely not the best course of action at this time given patient's cocurrent infection. Will continue to monitor and potentially get the shot later on admission if infection improves. (4) Incontinence associated dermatitis: Code(s): L25.8 - Unspecified contact dermatitis due to other agents; R32 - Unspecified urinary incontinence Status: Acute Assessment and Plan: She admitted that she has difficulties getting to the bathroom due to her home situation and that is not unusual for her to be incontinent. Per chart review patient arrived to the emergency department in underwear which was soiled with stool and urine. Urinalysis is positive for 2+ protein, trace glucose, 1+ ketones, trace leukocyte esterase, 6-10 RBC and WBC, and occasional squamous cells. No bacteria seen. Given fluconazole in ED Started on Ancef Urine culture negative (5) Prediabetes: Code(s): R73.03 - Prediabetes Status: Acute Assessment and Plan: - monitor glucose levels with CMP, well controlled at this time - home medication - none, trying to control with diet/exercise - A1C 6.4 on 07/10/24 (6) Iron deficiency anemia: Code(s): D50.9 - Iron deficiency anemia, unspecified Status: Acute Assessment and Plan: H/H 11.3/36.8 on admission, appears around baseline Resumed patients iron supplementation No signs of active bleeding Monitor (7) Essential (primary) hypertension: Code(s): I10 - Essential (primary) hypertension Status: Acute Assessment and Plan: Chronic, continue home medications - amlodipine 2.5 mg daily - propranolol 10 mg BID, per PCP note more related to patients tremors - telmisartan 40 mg daily - blood pressures stable, continue to monitor Time Spent With Patient Time with patient: 25 - 35 minutes Subjective Date/time seen: 08/12/24 09:01 Interval history: 69-year-old female with prediabetes, hypertension, hyperlipidemia, and Meniere's disease who presented to the hospital via EMS from home for evaluation after a fall. Believes falls are mostly due to her left knee giving out as she is unable to use her cane in the home secondary to hoarding conditions. She also noted redness and swelling of the skin on her lower abdomen and groin with malodorous discharge. She admitted that she has difficulties getting to the bathroom due to her home situation and that is not unusual for her to be incontinent. Patient is pleasant sitting up comfortably in her bed. She states that her abdominal pain has improved since being cleaned by Wound Care. She also notes that she worked well with therapy today was able to stand for a short period time. She continues to endorse knee pain but states understanding about moving forward with the cortisone shot at this time. She has no other complaints denying chest pain, palpitations, shortness of breath, nausea/vomiting. Review of Systems Review of Systems: All systems reviewed & are unremarkable except as noted in HPI and below Exam Narrative: AF HR 64 RR 20 Spo2 95 BP 136/76 General: obese female in no acute respiratory distress who is nontoxic appearing, sitting up in bed. HEENT: Normocephalic. Atraumatic. Extraocular movement intact. Sclera clear and anicteric. No facial asymmetry. Chest: Lungs are clear to auscultation bilaterally. No wheezes or crackles. CV: Heart was regular rate and rhythm. S1-S2. No murmurs, gallops, or rubs. Abd: Abdomen was soft. Positive bowel sounds. Ext: No clubbing, cyanosis, or edema. DP pulses bilaterally. Neuro: Patient is alert. Speech is clear. Skin: Improving, large tender and erythematous area to the lower abdomen extending into groin, more so on the right. Noted emerald within the folds. Objective Data Vital Signs Vital Signs: Vital Signs - 24 hr 08/11/24 09:29 08/11/24 09:35 08/11/24 14:00 Temperature 97.6 F Pulse Rate 74 88 Respiratory Rate 17 Blood Pressure 140/82 Pulse Oximetry 96 Oxygen Delivery Room Air Fraction of Inspired Oxygen 08/11/24 20:00 08/11/24 20:50 08/11/24 21:19 Temperature 97.7 F Pulse Rate 81 81 Respiratory Rate 20 20 Blood Pressure 125/76 Pulse Oximetry 94 95 Oxygen Delivery Room Air Room Air Fraction of Inspired Oxygen 21 08/12/24 03:22 08/12/24 08:37 Temperature 98.4 F Pulse Rate 64 64 Respiratory Rate 20 Blood Pressure 136/76 Pulse Oximetry 95 Oxygen Delivery Fraction of Inspired Oxygen Intake/Output Intake/Output: Intake & Output 08/09/24 08/10/24 08/11/24 08/12/24 23:59 23:59 23:59 23:59 Intake Total 1630 290 Output Total 50 400 150 Balance -50 1230 140 Meds/Results Medications: Active Medications Generic Name Dose Route Start Last Admin Trade Name Freq PRN Reason Stop Dose Admin Acetaminophen 650 mg 08/11/24 03:38 08/11/24 05:09 Acetaminophen 325 Mg Tablet PO 650 mg Q6H PRN Administration Mild Pain (1-3) or Fever Albuterol 1 puff 08/11/24 07:48 Albuterol Sulfate (*Sp) Aerosol 1 Puff INHALATION Q6H PRN shortness of breath or wheezing Amlodipine Besylate 2.5 mg 08/11/24 09:00 08/12/24 08:36 Amlodipine Besylate 2.5 Mg Tablet PO 2.5 mg QAM MALIHA Administration Aspirin 81 mg 08/11/24 09:00 08/12/24 08:37 Aspirin 81 Mg Enteric Tablet PO 81 mg DAILY MALIHA Administration Azelastine HCl 2 spray 08/11/24 09:00 08/12/24 08:44 Azelastine Hcl Nasal 0.1% 137 Mcg/Spr 30 Ml Btl NASAL Not Given Q12H [facility] Carisoprodol 350 mg 08/11/24 09:00 08/12/24 08:37 Carisoprodol (*Crx) 350 Mg Tablet PO 350 mg TID MALIHA Administration Ferrous Sulfate 325 mg 08/11/24 09:00 08/12/24 08:37 Ferrous Sulfate [address] PO 325 mg BID MALIHA Administration Cefazolin Sodium 1 gm in 50 mls @ 100 mls/hr 08/11/24 08:00 08/12/24 08:38 Ancef 1 Gm/Ns 50 Ml IVPB 100 mls/hr Q8H MALIHA Administration Meclizine HCl 25 mg 08/11/24 09:00 08/12/24 08:36 Meclizine Hcl 25 Mg Tablet PO 25 mg QID MALIHA Administration Metoclopramide HCl 10 mg 08/11/24 08:00 08/12/24 05:53 Metoclopramide Hcl 10 Mg Tablet PO 10 mg TIDAC MALIHA Administration Pantoprazole Sodium 40 mg 08/11/24 09:00 08/12/24 08:37 Pantoprazole 40 Mg Tablet PO 40 mg DAILY MALIHA Administration Pravastatin Sodium 20 mg 08/11/24 21:00 08/11/24 22:36 Pravastatin Sodium 20 Mg Tablet PO 20 mg QHS MALIHA Administration Propranolol HCl 10 mg 08/11/24 09:00 08/12/24 08:37 Propranolol Hcl 10 Mg Tablet PO 10 mg Q12H MALIHA Administration Telmisartan 40 mg 08/11/24 09:00 08/12/24 08:36 Telmisartan 40 Mg Tablet PO 40 mg DAILY MALIHA Administration Radiology Results: ITS Impressions Chest X-Ray 08/10/24 22:04 IMPRESSION: Cardiomegaly. Congestive myron. No acute lung lesion seen. Abdomen/Pelvis CT 08/11/24 05:41 Impression: No abscess identified. Shotty right inguinal lymph nodes are present, nonspecific. Asymmetric enlargement right piriformis muscle as compared to left. This could reflect asymmetric left-sided atrophy versus hypertrophy of the right side. Correlate clinically. No distinct mass evident. Labs Labs: Laboratory Results - last 24 hr 08/12/24 04:47 WBC 11.5 H RBC 4.21 Hgb 10.5 L Hct 35.7 L MCV 84.8 D MCH 24.9 L MCHC 29.4 L RDW 16.8 H Plt Count 510 H MPV 9.1 Sodium 130 L Potassium 3.3 L Chloride 100 Carbon Dioxide 22 Anion Gap 8 BUN 13 Creatinine 0.64 L Estim Creat Clear Calc Not Reportable Estimated GFR > 60 Glucose 96 Calcium 8.0 L Total Bilirubin 0.3 AST 57 H ALT 28 Alkaline Phosphatase 71 Total Protein 6.0 L Albumin 2.9 L Quality VTE Prophylaxis VTE prophylaxis: pharmacologic ordered
[2024-08-12] MEDS: POTASSIUM CHLORIDE 20 MEQ ER TABLET 40 MEQ PO (11:20)
[2024-08-12] MEDS: PRAVASTATIN SODIUM 20 MG TABLET PO (20:32)
[2024-08-12] MEDS: AZELASTINE HCL NASAL 0.1% 137 MCG/SPR 30 ML BTL 2 SPRAY NASAL (20:33)
[2024-08-13 03:24] VITALS: BP 152/89; PULSE 71; RESP 18; TEMP 36.5; O2SAT 94
[2024-08-13 05:22] LABS: Hemoglobin 10.5 g/dL (12.0-15.0); Mean Corpuscular Hemoglobin 25.1 pg (26-34); Mean Corpuscular Volume 83.7 fl (80-100); Mean Platelet Volume 9.3 fl (7.4-10.4); Platelet Count Result 488 k/mm3 (150-375); Red Blood Count 4.18 M/mm3 (4.2-5.4); Red Cell Distribution Width 16.8 % (11.5-14.5)
[2024-08-13 05:40] LABS: Alanine Aminotransferase 23 U/L (6-35); Albumin Level 2.9 g/dL (3.5-5.1); Alkaline Phosphatase 69 U/L (38-126); Anion Gap 6 mmol/L (4-12); Aspartate Amino Transferase 43 U/L (14-36); Bilirubin,Total 0.2 mg/dL (0.2-1.3); Blood Urea Nitrogen 11 mg/dL (7-17); Calcium 7.9 mg/dL (8.4-10.2); Carbon Dioxide 23 mmol/L (22-30); Chloride 100 mmol/L (98-107); Estimated Glomerular Filt Rate > 60; Glucose 98 mg/dL (65-110); Potassium 3.9 mmol/L (3.4-5.0); Sodium 129 mmol/L (137-145)
[2024-08-13] MEDS: METOCLOPRAMIDE HCL 10 MG TABLET PO ×3 (05:48→16:19)
--- NOTE | 2024-08-13 07:27 | P.PNIM_ITS ---
Progress Note: A&P Assessment and Plan (1) Cellulitis: Code(s): L03.90 - Cellulitis, unspecified Status: Acute Assessment and Plan: Redness and swelling of the skin on her lower abdomen and groin with malodorous discharge. CT abdomen/pelvis showed no abscess - Antibiotic: Ancef started on 08/10, transitioned to Bactrim and Flagyl on 08/13. Discussed with [facility]. - Blood cultures obtained on 08/10: NGTD - Groin wound culture: bacteroides - Monitor vital signs, I&Os, neuro status and patient is a fall risk - Monitor serum electrolytes, CBC, cultures, WBC and temp curve - Wound consulted, appreciate recommendations: antifungal powder Significant improvement. (2) Intertriginous candidiasis: Code(s): B37.2 - Candidiasis of skin and nail Status: Acute Assessment and Plan: Redness and swelling of the skin on her lower abdomen and groin with malodorous discharge. Received a dose of p.o. fluconazole in the ED. Wound nurse has been consulted for further recommendations: antifungal powder Improving. (3) Generalized weakness: Code(s): R53.1 - Weakness Status: Acute Assessment and Plan: Falls are mostly due to her left knee giving out as she is unable to use her cane in the home secondary to hoarding conditions. CK elevated on admission at 3135, received 1L NS. Electrolytes and kidney f unction stable. Knee, left XR on 08/03 showed no acute abnormalities but severe tricompartmental osteoarthritis and old healed fractures of keshawn proximal tibia and fibula CT abdomen/pelvis showed no abscess but did note asymmetric enlargement right piriformis muscle as compared to left. This could reflect asymmetric left-sided atrophy versus hypertrophy of the right side PT/OT consulted: SNF Patient will likely need and benefit from rehab placement and she will need her home cleaned prior to return Was to obtain a cortisone shot with Dr. Ahuja on . Discussed patient with Ortho in agreement that the cortisone shot is likely not the best course of action at this time given patient's cocurrent infection. Will continue to monitor and potentially get the shot later on admission if infection improves. (4) Incontinence associated dermatitis: Code(s): L25.8 - Unspecified contact dermatitis due to other agents; R32 - Unspecified urinary incontinence Status: Acute Assessment and Plan: She admitted that she has difficulties getting to the bathroom due to her home situation and that is not unusual for her to be incontinent. Per chart review patient arrived to the emergency department in underwear which was soiled with stool and urine. Urinalysis is positive for 2+ protein, trace glucose, 1+ ketones, trace leukocyte esterase, 6-10 RBC and WBC, and occasional squamous cells. No bacteria seen. Given fluconazole in ED Started on Ancef, transitioned to oral bactrim and flagyl Urine culture negative (5) Prediabetes: Code(s): R73.03 - Prediabetes Status: Acute Assessment and Plan: - monitor glucose levels with CMP, well controlled at this time - home medication - none, trying to control with diet/exercise - A1C 6.4 on 07/10/24 Glucose remains well controlled. Monitor. (6) Iron deficiency anemia: Code(s): D50.9 - Iron deficiency anemia, unspecified Status: Acute Assessment and Plan: H/H 11.3/36.8 on admission, appears around baseline Resumed patients iron supplementation No signs of active bleeding Monitor (7) Essential (primary) hypertension: Code(s): I10 - Essential (primary) hypertension Status: Acute Assessment and Plan: Chronic, continue home medications - amlodipine 2.5 mg daily - propranolol 10 mg BID, per PCP note more related to patients tremors - telmisartan 40 mg daily - blood pressures stable, continue to monitor Time Spent With Patient Time with patient: 25 - 35 minutes Subjective Date/time seen: 08/13/24 07:27 Interval history: 69-year-old female with prediabetes, hypertension, hyperlipidemia, and Meniere's disease who presented to the hospital via EMS from home for evaluation after a fall. Believes falls are mostly due to her left knee giving out as she is unable to use her cane in the home secondary to hoarding conditions. She also noted redness and swelling of the skin on her lower abdomen and groin with malodorous discharge. She admitted that she has difficulties getting to the bathroom due to her home situation and that is not unusual for her to be incontinent. Patient is pleasant sitting up comfortably in bed. She in much better spirits and notes that her physical therapy at well as she was able to stand up on the side of the bed several times. She also notes that her abdomen is less painful today and has noticeably less weeping. She has no other complaints denying chest pain, shortness a breath, palpitations, and nausea/vomiting. Review of Systems Review of Systems: All systems reviewed & are unremarkable except as noted in HPI and below Exam Narrative: AF HR 72 RR 18 SpO2 94 BP 152/89 General: obese female in no acute respiratory distress who is nontoxic appearing, sitting up in bed. HEENT: Normocephalic. Atraumatic. Extraocular movement intact. Sclera clear and anicteric. No facial asymmetry. Chest: Lungs are clear to auscultation bilaterally. No wheezes or crackles. CV: Heart was regular rate and rhythm. S1-S2. No murmurs, gallops, or rubs. Abd: Abdomen was soft. Positive bowel sounds. Ext: No clubbing, cyanosis, or edema. DP pulses bilaterally. Neuro: Patient is alert. Speech is clear. Skin: Improving, large tender and erythematous area to the lower abdomen extending into groin, more so on the right. Noted emerald within the folds. Minimal weeping. Objective Data Vital Signs Vital Signs: Vital Signs - 24 hr 08/12/24 08:35 08/12/24 08:37 08/12/24 09:55 Temperature Pulse Rate 64 Respiratory Rate Blood Pressure Pulse Oximetry Oxygen Delivery Room Air Room Air 08/12/24 10:16 08/12/24 14:00 08/12/24 20:00 Temperature 98 F Pulse Rate 67 Respiratory Rate 18 Blood Pressure 136/60 Pulse Oximetry 95 Oxygen Delivery Room Air Room Air 08/12/24 20:29 08/12/24 20:32 08/12/24 21:09 Temperature 98.4 F 97.7 F Pulse Rate 68 68 69 Respiratory Rate 16 20 Blood Pressure 145/76 H 117/77 Pulse Oximetry 95 95 Oxygen Delivery 08/12/24 23:39 08/13/24 03:24 Temperature 97.7 F Pulse Rate 71 Respiratory Rate 18 Blood Pressure 152/89 H Pulse Oximetry 95 94 Oxygen Delivery Room Air Intake/Output Intake/Output: Intake & Output 08/10/24 08/11/24 08/12/24 08/13/24 23:59 23:59 23:59 23:59 Intake Total 1630 870 390 Output Total 50 400 750 150 Balance -50 1230 120 240 Meds/Results Medications: Active Medications Generic Name Dose Route Start Last Admin Trade Name Freq PRN Reason Stop Dose Admin Acetaminophen 650 mg 08/11/24 03:38 08/11/24 05:09 Acetaminophen 325 Mg Tablet PO 650 mg Q6H PRN Administration Mild Pain (1-3) or Fever Albuterol 1 puff 08/11/24 07:48 Albuterol Sulfate (*Sp) Aerosol 1 Puff INHALATION Q6H PRN shortness of breath or wheezing Amlodipine Besylate 2.5 mg 08/11/24 09:00 08/12/24 08:36 Amlodipine Besylate 2.5 Mg Tablet PO 2.5 mg QAM MALIHA Administration Aspirin 81 mg 08/11/24 09:00 08/12/24 08:37 Aspirin 81 Mg Enteric Tablet PO 81 mg DAILY MALIHA Administration Azelastine HCl 2 spray 08/11/24 09:00 08/12/24 20:33 Azelastine Hcl Nasal 0.1% 137 Mcg/Spr 30 Ml Btl NASAL 2 spray Q12H MALIHA Administration Carisoprodol 350 mg 08/11/24 09:00 08/12/24 17:18 Carisoprodol (*Crx) 350 Mg Tablet PO 350 mg TID MALIHA Administration Ferrous Sulfate 325 mg 08/11/24 09:00 08/12/24 17:18 Ferrous Sulfate [address] PO 325 mg BID MALIHA Administration Cefazolin Sodium 1 gm in 50 mls @ 100 mls/hr 08/11/24 08:00 08/13/24 00:25 Ancef 1 Gm/Ns 50 Ml IVPB Infused Q8H MALIHA Infusion Meclizine HCl 25 mg 08/11/24 09:00 08/12/24 20:33 Meclizine Hcl 25 Mg Tablet PO 25 mg QID MALIHA Administration Metoclopramide HCl 10 mg 08/11/24 08:00 08/13/24 05:48 Metoclopramide Hcl 10 Mg Tablet PO 10 mg TIDAC MALIHA Administration Pantoprazole Sodium 40 mg 08/11/24 09:00 08/12/24 08:37 Pantoprazole 40 Mg Tablet PO 40 mg DAILY MALIHA Administration Pravastatin Sodium 20 mg 08/11/24 21:00 08/12/24 20:32 Pravastatin Sodium 20 Mg Tablet PO 20 mg QHS MALIHA Administration Propranolol HCl 10 mg 08/11/24 09:00 08/12/24 20:32 Propranolol Hcl 10 Mg Tablet PO 10 mg Q12H MALIHA Administration Telmisartan 40 mg 08/11/24 09:00 08/12/24 08:36 Telmisartan 40 Mg Tablet PO 40 mg DAILY MALIHA Administration Radiology Results: ITS Impressions Chest X-Ray 08/10/24 22:04 IMPRESSION: Cardiomegaly. Congestive myron. No acute lung lesion seen. Abdomen/Pelvis CT 08/11/24 05:41 Impression: No abscess identified. Shotty right inguinal lymph nodes are present, nonspecific. Asymmetric enlargement right piriformis muscle as compared to left. This could reflect asymmetric left-sided atrophy versus hypertrophy of the right side. Correlate clinically. No distinct mass evident. Labs Labs: Laboratory Results - last 24 hr 08/13/24 04:56 WBC 10.0 RBC 4.18 L Hgb 10.5 L Hct 35.0 L MCV 83.7 MCH 25.1 L MCHC 30.0 L RDW 16.8 H Plt Count 488 H MPV 9.3 Sodium 129 L Potassium 3.9 Chloride 100 Carbon Dioxide 23 Anion Gap 6 BUN 11 Creatinine 0.61 L Estim Creat Clear Calc Not Reportable Estimated GFR > 60 Glucose 98 Calcium 7.9 L Total Bilirubin 0.2 AST 43 H ALT 23 Alkaline Phosphatase 69 Total Protein 6.0 L Albumin 2.9 L Quality VTE Prophylaxis VTE prophylaxis: pharmacologic ordered
[2024-08-13] MEDS: ceFAZolin 1 GM/NS 50 ML 1 GM/50 ML BAG IVPB (08:03)
[2024-08-13] MEDS: FERROUS SULFATE 325 MG TABLET DR PO ×2 (08:07→16:19)
[2024-08-13] MEDS: AZELASTINE HCL NASAL 0.1% 137 MCG/SPR 30 ML BTL 2 SPRAY NASAL ×2 (08:07→20:24)
[2024-08-13] MEDS: TELMISARTAN 40 MG TABLET PO (08:07)
[2024-08-13 08:08] VITALS: PULSE 72
[2024-08-13] MEDS: PROPRANOLOL HCL 10 MG TABLET PO ×2 (08:08→20:24)
[2024-08-13] MEDS: MECLIZINE HCL 25 MG TABLET PO ×4 (08:08→20:25)
[2024-08-13] MEDS: PANTOPRAZOLE 40 MG TABLET PO (08:08)
[2024-08-13] MEDS: amLODIPine BESYLATE 2.5 MG TABLET PO (08:08)
[2024-08-13 08:09] VITALS: RESP 18; O2SAT 94
[2024-08-13] MEDS: carisoprodoL (*CRX) 350 MG TABLET PO ×3 (08:09→16:19)
[2024-08-13] MEDS: ASPIRIN 81 MG ENTERIC TABLET PO (08:09)
[2024-08-13] MEDS: SULFAMETHOXAZOLE/TRIMETHOPRIM 800/160 MG DS TABLET 1 TAB PO ×2 (11:43→20:25)
[2024-08-13] MEDS: metroNIDAZOLE 500 MG TABLET PO ×2 (11:43→20:25)
[2024-08-13 14:00] VITALS: BP 136/79; PULSE 72; RESP 14; TEMP 36.6; O2SAT 97
[2024-08-13 19:25] VITALS: BP 137/69; PULSE 67; RESP 18; TEMP 36.9; O2SAT 99
[2024-08-13 20:00] VITALS: PULSE 67; RESP 18; O2SAT 99
[2024-08-13] MEDS: PRAVASTATIN SODIUM 20 MG TABLET PO (20:25)
[2024-08-14] VITALS (7 sets, daily range): BP systolic 103–150; BP diastolic 60–78; PULSE 64–85; RESP 12–20; TEMP 36.6–36.7; O2SAT 94–97
[2024-08-14 05:03] LABS: Hematocrit 34.9 % (37.0-47.0); Hemoglobin 10.8 g/dL (12.0-15.0); Mean Corpuscular HGB Conc 30.9 g/dl (32-36); Mean Corpuscular Hemoglobin 25.4 pg (26-34); Mean Corpuscular Volume 81.9 fl (80-100); Platelet Count Result 484 k/mm3 (150-375); Red Blood Count 4.26 M/mm3 (4.2-5.4); White Blood Count 11.9 K/mm3 (4.5-10.0)
[2024-08-14] MEDS: metroNIDAZOLE 500 MG TABLET PO ×3 (05:11→21:20)
[2024-08-14] MEDS: METOCLOPRAMIDE HCL 10 MG TABLET PO ×3 (05:11→17:04)
[2024-08-14 05:23] LABS: Alanine Aminotransferase 20 U/L (6-35); Alkaline Phosphatase 66 U/L (38-126); Anion Gap 5 mmol/L (4-12); Aspartate Amino Transferase 35 U/L (14-36); Bilirubin,Total 0.3 mg/dL (0.2-1.3); Blood Urea Nitrogen 10 mg/dL (7-17); Carbon Dioxide 23 mmol/L (22-30); Chloride 100 mmol/L (98-107); Estimated Glomerular Filt Rate > 60; Glucose 105 mg/dL (65-110); Potassium 4.3 mmol/L (3.4-5.0); Sodium 128 mmol/L (137-145)
[2024-08-14] MEDS: PROPRANOLOL HCL 10 MG TABLET PO ×2 (08:07→20:05)
[2024-08-14] MEDS: AZELASTINE HCL NASAL 0.1% 137 MCG/SPR 30 ML BTL 2 SPRAY NASAL (08:07)
[2024-08-14] MEDS: amLODIPine BESYLATE 2.5 MG TABLET PO (08:08)
[2024-08-14] MEDS: carisoprodoL (*CRX) 350 MG TABLET PO ×3 (08:08→17:04)
[2024-08-14] MEDS: FERROUS SULFATE 325 MG TABLET DR PO ×2 (08:08→17:04)
[2024-08-14] MEDS: ASPIRIN 81 MG ENTERIC TABLET PO (08:08)
[2024-08-14] MEDS: TELMISARTAN 40 MG TABLET PO (08:08)
[2024-08-14] MEDS: SULFAMETHOXAZOLE/TRIMETHOPRIM 800/160 MG DS TABLET 1 TAB PO ×2 (08:08→20:05)
[2024-08-14] MEDS: PANTOPRAZOLE 40 MG TABLET PO (08:08)
[2024-08-14] MEDS: MECLIZINE HCL 25 MG TABLET PO ×4 (08:09→20:04)
--- NOTE | 2024-08-14 12:55 | P.PNIM_ITS ---
Progress Note: A&P Assessment and Plan (1) Cellulitis: Code(s): L03.90 - Cellulitis, unspecified Status: Acute Assessment and Plan: Redness and swelling of the skin on her lower abdomen and groin with malodorous discharge. CT abdomen/pelvis showed no abscess - Antibiotic: Ancef started on 08/10, transitioned to Bactrim and Flagyl on 08/13. Discussed with [facility]. - Blood cultures obtained on 08/10: NGTD - Groin wound culture: bacteroides - Monitor vital signs, I&Os, neuro status and patient is a fall risk - Monitor serum electrolytes, CBC, cultures, WBC and temp curve - Wound consulted, appreciate recommendations: antifungal powder Significant improvement. (2) Intertriginous candidiasis: Code(s): B37.2 - Candidiasis of skin and nail Status: Acute Assessment and Plan: Redness and swelling of the skin on her lower abdomen and groin with malodorous discharge. Received a dose of p.o. fluconazole in the ED. Wound nurse has been consulted for further recommendations: antifungal powder Improving. (3) Generalized weakness: Code(s): R53.1 - Weakness Status: Acute Assessment and Plan: Falls are mostly due to her left knee giving out as she is unable to use her cane in the home secondary to hoarding conditions. CK elevated on admission at 3135, received 1L NS. Electrolytes and kidney f unction stable. Knee, left XR on 08/03 showed no acute abnormalities but severe tricompartmental osteoarthritis and old healed fractures of keshawn proximal tibia and fibula CT abdomen/pelvis showed no abscess but did note asymmetric enlargement right piriformis muscle as compared to left. This could reflect asymmetric left-sided atrophy versus hypertrophy of the right side PT/OT consulted: SNF Patient will likely need and benefit from rehab placement and she will need her home cleaned prior to return Was to obtain a cortisone shot with Dr. Ahuja on . Discussed patient with Ortho in agreement that the cortisone shot is likely not the best course of action at this time given patient's cocurrent infection. Will continue to monitor and potentially get the shot later on admission if infection improves. (4) Incontinence associated dermatitis: Code(s): L25.8 - Unspecified contact dermatitis due to other agents; R32 - Unspecified urinary incontinence Status: Acute Assessment and Plan: She admitted that she has difficulties getting to the bathroom due to her home situation and that is not unusual for her to be incontinent. Per chart review patient arrived to the emergency department in underwear which was soiled with stool and urine. Urinalysis is positive for 2+ protein, trace glucose, 1+ ketones, trace leukocyte esterase, 6-10 RBC and WBC, and occasional squamous cells. No bacteria seen. Given fluconazole in ED Started on Ancef, transitioned to oral bactrim and flagyl -continue it Urine culture negative (5) Prediabetes: Code(s): R73.03 - Prediabetes Status: Acute Assessment and Plan: - monitor glucose levels with CMP, well controlled at this time - home medication - none, trying to control with diet/exercise - A1C 6.4 on 07/10/24 Glucose remains well controlled. Monitor. (6) Iron deficiency anemia: Code(s): D50.9 - Iron deficiency anemia, unspecified Status: Acute Assessment and Plan: H/H 11.3/36.8 on admission, appears around baseline Resumed patients iron supplementation No signs of active bleeding Monitor (7) Essential (primary) hypertension: Code(s): I10 - Essential (primary) hypertension Status: Acute Assessment and Plan: Chronic, continue home medications - amlodipine 2.5 mg daily - propranolol 10 mg BID, per PCP note more related to patients tremors - telmisartan 40 mg daily - blood pressures stable, continue to monitor Time Spent With Patient Time with patient: 25 - 35 minutes Subjective Date/time seen: 08/14/24 12:55 Interval history: 69-year-old female with prediabetes, hypertension, hyperlipidemia, and Meniere's disease who presented to the hospital via EMS from home for evaluation after a fall. Believes falls are mostly due to her left knee giving out as she is unable to use her cane in the home secondary to hoarding conditions. She also noted redness and swelling of the skin on her lower abdomen and groin with malodorous discharge. She admitted that she has difficulties getting to the bathroom due to her home situation and that is not unusual for her to be incontinent. Patient is pleasant, laying in bed. Working with PT/OT. She also notes that her abdomen is less painful today and has noticeably less weeping. She has no other complains- no chest pain, shortness a breath, palpitations, and nausea/vomiting. Review of Systems Review of Systems: 12 systems were reviewed and are negativ e except for as per HPI. All systems reviewed & are unremarkable except as noted in HPI and below Exam Narrative: General: obese female in no acute respiratory distress who is nontoxic appearing, sitting up in bed. HEENT: Normocephalic. Atraumatic. Extraocular movement intact. Sclera clear and anicteric. No facial asymmetry. Chest: Lungs are clear to auscultation bilaterally. No wheezes or crackles. CV: Heart was regular rate and rhythm. S1-S2. No murmurs, gallops, or rubs. Abd: Abdomen was soft. Positive bowel sounds. Ext: No clubbing, cyanosis, or edema. DP pulses bilaterally. Neuro: Patient is alert. Speech is clear. Skin: Improving, large tender and erythematous area to the lower abdomen extending into groin, more so on the right. Noted emerald within the folds. Minimal weeping. Const: General: comfortable Objective Data Vital Signs Vital Signs: Vital Signs - 24 hr 08/13/24 14:00 08/13/24 19:25 08/13/24 20:00 Temperature 97.9 F 98.4 F Pulse Rate 72 67 67 Respiratory Rate 14 18 18 Blood Pressure 136/79 137/69 Pulse Oximetry 97 99 99 Oxygen Delivery Room Air Fraction of Inspired Oxygen 08/14/24 04:58 08/14/24 08:07 08/14/24 08:09 Temperature 98.1 F Pulse Rate 70 70 Respiratory Rate 18 18 Blood Pressure 138/78 Pulse Oximetry 94 94 Oxygen Delivery Room Air Fraction of Inspired Oxygen Intake/Output Intake/Output: Intake & Output 08/11/24 08/12/24 08/13/24 08/14/24 23:59 23:59 23:59 23:59 Intake Total 6288 226 5908 730 Output Total 400 750 930 400 Balance 8884 356 4781 330 Meds/Results Medications: Active Medications Generic Name Dose Route Start Last Admin Trade Name Freq PRN Reason Stop Dose Admin Acetaminophen 650 mg 08/11/24 03:38 08/11/24 05:09 Acetaminophen 325 Mg Tablet PO 650 mg Q6H PRN Administration Mild Pain (1-3) or Fever Albuterol 1 puff 08/11/24 07:48 Albuterol Sulfate (*Sp) Aerosol 1 Puff INHALATION Q6H PRN shortness of breath or wheezing Amlodipine Besylate 2.5 mg 08/11/24 09:00 08/14/24 08:08 Amlodipine Besylate 2.5 Mg Tablet PO 2.5 mg QAM MALIHA Administration Aspirin 81 mg 08/11/24 09:00 08/14/24 08:08 Aspirin 81 Mg Enteric Tablet PO 81 mg DAILY MALIHA Administration Azelastine HCl 2 spray 08/11/24 09:00 08/14/24 08:07 Azelastine Hcl Nasal 0.1% 137 Mcg/Spr 30 Ml Btl NASAL 2 spray Q12H MALIHA Administration Carisoprodol 350 mg 08/11/24 09:00 08/14/24 12:38 Carisoprodol (*Crx) 350 Mg Tablet PO 350 mg TID MALIHA Administration Ferrous Sulfate 325 mg 08/11/24 09:00 08/14/24 08:08 Ferrous Sulfate [address] PO 325 mg BID MALIHA Administration Meclizine HCl 25 mg 08/11/24 09:00 08/14/24 12:38 Meclizine Hcl 25 Mg Tablet PO 25 mg QID MALIHA Administration Metoclopramide HCl 10 mg 08/11/24 08:00 08/14/24 11:38 Metoclopramide Hcl 10 Mg Tablet PO 10 mg TIDAC MALIHA Administration Metronidazole 500 mg 08/13/24 11:00 08/14/24 05:11 Metronidazole 500 Mg Tablet PO 08/18/24 06:01 500 mg Q8HR MALIHA Administration Pantoprazole Sodium 40 mg 08/11/24 09:00 08/14/24 08:08 Pantoprazole 40 Mg Tablet PO 40 mg DAILY MALIHA Administration Pravastatin Sodium 20 mg 08/11/24 21:00 08/13/24 20:25 Pravastatin Sodium 20 Mg Tablet PO 20 mg QHS MALIHA Administration Propranolol HCl 10 mg 08/11/24 09:00 08/14/24 08:07 Propranolol Hcl 10 Mg Tablet PO 10 mg Q12H MALIHA Administration Telmisartan 40 mg 08/11/24 09:00 08/14/24 08:08 Telmisartan 40 Mg Tablet PO 40 mg DAILY MALIHA Administration Trimethoprim/Sulfamethoxazole 1 tab 08/13/24 11:00 08/14/24 08:08 Sulfamethoxazole/Trimethoprim 800/160 Mg Ds Tablet PO 08/17/24 21:01 1 tab Q12HR MALIHA Administration Radiology Results: ITS Impressions Chest X-Ray 08/10/24 22:04 IMPRESSION: Cardiomegaly. Congestive myron. No acute lung lesion seen. Abdomen/Pelvis CT 08/11/24 05:41 Impression: No abscess identified. Shotty right inguinal lymph nodes are present, nonspecific. Asymmetric enlargement right piriformis muscle as compared to left. This could reflect asymmetric left-sided atrophy versus hypertrophy of the right side. Correlate clinically. No distinct mass evident. Labs Labs: Laboratory Results - last 24 hr 08/14/24 04:54 WBC 11.9 H RBC 4.26 Hgb 10.8 L Hct 34.9 L MCV 81.9 MCH 25.4 L MCHC 30.9 L RDW 17.0 H Plt Count 484 H MPV 9.0 Sodium 128 L Potassium 4.3 Chloride 100 Carbon Dioxide 23 Anion Gap 5 BUN 10 Creatinine 0.62 L Estim Creat Clear Calc Not Reportable Estimated GFR > 60 Glucose 105 Calcium 8.0 L Total Bilirubin 0.3 AST 35 ALT 20 Alkaline Phosphatase 66 Total Protein 6.0 L Albumin 3.0 L Quality VTE Prophylaxis VTE prophylaxis: pharmacologic ordered
[2024-08-14] MEDS: PRAVASTATIN SODIUM 20 MG TABLET PO (20:04)
[2024-08-15 04:14] VITALS: BP 126/57; PULSE 65; RESP 18; TEMP 36.4; O2SAT 96
[2024-08-15 05:18] LABS: Hematocrit 33.6 % (37.0-47.0); Hemoglobin 10.5 g/dL (12.0-15.0); Mean Corpuscular HGB Conc 31.3 g/dl (32-36); Mean Corpuscular Hemoglobin 25.1 pg (26-34); Mean Corpuscular Volume 80.4 fl (80-100); Mean Platelet Volume 9.2 fl (7.4-10.4); Platelet Count Result 469 k/mm3 (150-375); Red Blood Count 4.18 M/mm3 (4.2-5.4); Red Cell Distribution Width 17.1 % (11.5-14.5); White Blood Count 11.5 K/mm3 (4.5-10.0)
[2024-08-15 05:30] LABS: Alanine Aminotransferase 20 U/L (6-35); Albumin Level 2.8 g/dL (3.5-5.1); Alkaline Phosphatase 50 U/L (38-126); Anion Gap 5 mmol/L (4-12); Aspartate Amino Transferase 43 U/L (14-36); Bilirubin,Total 0.5 mg/dL (0.2-1.3); Blood Urea Nitrogen 9 mg/dL (7-17); Calcium 7.9 mg/dL (8.4-10.2); Carbon Dioxide 24 mmol/L (22-30); Chloride 98 mmol/L (98-107); Estimated Glomerular Filt Rate > 60; Glucose 107 mg/dL (65-110); Potassium 4.8 mmol/L (3.4-5.0); Sodium 127 mmol/L (137-145)
[2024-08-15] MEDS: METOCLOPRAMIDE HCL 10 MG TABLET PO ×3 (06:21→16:41)
[2024-08-15] MEDS: metroNIDAZOLE 500 MG TABLET PO ×3 (06:21→21:11)
[2024-08-15 08:30] VITALS: PULSE 64
[2024-08-15] MEDS: carisoprodoL (*CRX) 350 MG TABLET PO ×3 (08:30→16:41)
[2024-08-15] MEDS: MECLIZINE HCL 25 MG TABLET PO ×4 (08:30→21:11)
[2024-08-15] MEDS: PROPRANOLOL HCL 10 MG TABLET PO ×2 (08:30→21:11)
[2024-08-15] MEDS: PANTOPRAZOLE 40 MG TABLET PO (08:30)
[2024-08-15] MEDS: ASPIRIN 81 MG ENTERIC TABLET PO (08:31)
[2024-08-15] MEDS: TELMISARTAN 40 MG TABLET PO (08:31)
[2024-08-15] MEDS: FERROUS SULFATE 325 MG TABLET DR PO ×2 (08:31→16:41)
[2024-08-15] MEDS: AZELASTINE HCL NASAL 0.1% 137 MCG/SPR 30 ML BTL 2 SPRAY NASAL (08:31)
[2024-08-15] MEDS: SULFAMETHOXAZOLE/TRIMETHOPRIM 800/160 MG DS TABLET 1 TAB PO ×2 (08:31→21:11)
[2024-08-15] MEDS: amLODIPine BESYLATE 2.5 MG TABLET PO (08:31)
[2024-08-15 08:44] VITALS: RESP 18; O2SAT 96
--- NOTE | 2024-08-15 13:36 | P.PNIM_ITS ---
Progress Note: A&P Assessment and Plan (1) Cellulitis: Code(s): L03.90 - Cellulitis, unspecified Status: Acute Assessment and Plan: Redness and swelling of the skin on her lower abdomen and groin with malodorous discharge. CT abdomen/pelvis showed no abscess - Antibiotic: Ancef started on 08/10, transitioned to Bactrim and Flagyl on 08/13. Discussed with [facility]. - Blood cultures obtained on 08/10: NGTD - Groin wound culture: bacteroides - Monitor vital signs, I&Os, neuro status and patient is a fall risk - Monitor serum electrolytes, CBC, cultures, WBC and temp curve - Wound consulted, appreciate recommendations: antifungal powder Significant improvement. continue PO antibiotics. (2) Intertriginous candidiasis: Code(s): B37.2 - Candidiasis of skin and nail Status: Acute Assessment and Plan: Redness and swelling of the skin on her lower abdomen and groin with malodorous discharge. Received a dose of p.o. fluconazole in the ED. Wound nurse has been consulted for further recommendations: antifungal powder Improving. (3) Generalized weakness: Code(s): R53.1 - Weakness Status: Acute Assessment and Plan: Falls are mostly due to her left knee giving out as she is unable to use her cane in the home secondary to hoarding conditions. CK elevated on admission at 3135, received 1L NS. Electrolytes and kidney function stable. Knee, left XR on 08/03 showed no acute abnormalities but severe tricompartmental osteoarthritis and old healed fractures of keshawn proximal tibia and fibula CT abdomen/pelvis showed no abscess but did note asymmetric enlargement right piriformis muscle as compared to left. This could reflect asymmetric left-sided atrophy versus hypertrophy of the right side PT/OT consulted: SNF Patient will likely need and benefit from rehab placement and she will need her home cleaned prior to return Was to obtain a cortisone shot with Dr. Ahuja on . Discussed patient with Ortho in agreement that the cortisone shot is likely not the best course of action at this time given patient's cocurrent infection. Will continue to monitor and potentially get the shot later on admission if infection improves. continue working with PT/OT (4) Incontinence associated dermatitis: Code(s): L25.8 - Unspecified contact dermatitis due to other agents; R32 - Unspecified urinary incontinence Status: Acute Assessment and Plan: She admitted that she has difficulties getting to the bathroom due to her home situation and that is not unusual for her to be incontinent. Per chart review patient arrived to the emergency department in underwear which was soiled with stool and urine. Urinalysis is positive for 2+ protein, trace glucose, 1+ ketones, trace leukocyte esterase, 6-10 RBC and WBC, and occasional squamous cells. No bacteria seen. Given fluconazole in ED Started on Ancef, transitioned to oral bactrim and flagyl -continue it Urine culture negative (5) Prediabetes: Code(s): R73.03 - Prediabetes Status: Acute Assessment and Plan: - monitor glucose levels with CMP, well controlled at this time - home medication - none, trying to control with diet/exercise - A1C 6.4 on 07/10/24 Glucose remains well controlled. Monitor. (6) Iron deficiency anemia: Code(s): D50.9 - Iron deficiency anemia, unspecified Status: Acute Assessment and Plan: H/H 11.3/36.8 on admission, appears around baseline Resumed patients iron supplementation No signs of active bleeding Monitor (7) Essential (primary) hypertension: Code(s): I10 - Essential (primary) hypertension Status: Acute Assessment and Plan: Chronic, continue home medications - amlodipine 2.5 mg daily - propranolol 10 mg BID, per PCP note more related to patients tremors - telmisartan 40 mg daily - blood pressures stable, continue to monitor Time Spent With Patient Time with patient: 25 - 35 minutes Subjective Date/time seen: 08/15/24 13:36 Interval history: 69-year-old female with prediabetes, hypertension, hyperlipidemia, and Meniere's disease who presented to the hospital via EMS from home for evaluation after a fall. Believes falls are mostly due to her left knee giving out as she is unable to use her cane in the home secondary to hoarding conditions. She also noted redness and swelling of the skin on her lower abdomen and groin with malodorous discharge. She admitted that she has difficulties getting to the bathroom due to her home situation and that is not unusual for her to be i ncontinent. Patient is pleasant, laying in bed, eating. Working with PT/OT. She reports abdomen is less painful, she is on antibiotics. She has no other complains- no chest pain, shortness a breath, palpitations, and nausea/vomiting. Care coordination is following with placement - apparently placement pending insurance approval. Review of Systems Review of Systems: 12 systems were reviewed and are negativ e except for as per HPI. All systems reviewed & are unremarkable except as noted in HPI and below Exam Narrative: General: obese female in no acute respiratory distress who is nontoxic appea ring, sitting up in bed. HEENT: Normocephalic. Atraumatic. Extraocular movement intact. Sclera clear and anicteric. No facial asymmetry. Chest: Lungs are clear to auscultation bilaterally. No wheezes or crackles. CV: Heart was regular rate and rhythm. S1-S2. No murmurs, gallops, or rubs. Abd: Abdomen was soft. Positive bowel sounds. Ext: No clubbing, cyanosis, or edema. DP pulses bilaterally. Neuro: Patient is alert. Speech is clear. Skin: Improving, large tender and erythematous area to the lower abdomen extending into groin, more so on the right. Noted emerald within the folds. Minimal weeping. Const: General: comfortable Objective Data Vital Signs Vital Signs: Vital Signs - 24 hr 08/14/24 14:00 08/14/24 19:36 08/14/24 20:05 Temperature 98.1 F 97.8 F Pulse Rate 85 68 68 Respiratory Rate 12 18 Blood Pressure 150/78 H 103/60 Pulse Oximetry 94 97 Oxygen Delivery Fraction of Inspired Oxygen 08/14/24 20:44 08/15/24 04:14 08/15/24 08:30 Temperature 97.6 F Pulse Rate 64 65 64 Respiratory Rate 20 18 Blood Pressure 126/57 L Pulse Oximetry 94 96 Oxygen Delivery Room Air Fraction of Inspired Oxygen 08/15/24 08:44 Temperature Pulse Rate Respiratory Rate 18 Blood Pressure Pulse Oximetry 96 Oxygen Delivery Room Air Fraction of Inspired Oxygen Intake/Output Intake/Output: Intake & Output 08/12/24 08/13/24 08/14/24 08/15/24 23:59 23:59 23:59 23:59 Intake Total 870 2630 1950 1030 Output Total 625 432 1604 400 Balance 120 1700 525 630 Meds/Results Medications: Active Medications Generic Name Dose Route Start Last Admin Trade Name Freq PRN Reason Stop Dose Admin Acetaminophen 650 mg 08/11/24 03:38 08/11/24 05:09 Acetaminophen 325 Mg Tablet PO 650 mg Q6H PRN Administration Mild Pain (1-3) or Fever Albuterol 1 puff 08/11/24 07:48 Albuterol Sulfate (*Sp) Aerosol 1 Puff INHALATION Q6H PRN shortness of breath or wheezing Amlodipine Besylate 2.5 mg 08/11/24 09:00 08/15/24 08:31 Amlodipine Besylate 2.5 Mg Tablet PO 2.5 mg QAM MALIHA Administration Aspirin 81 mg 08/11/24 09:00 08/15/24 08:31 Aspirin 81 Mg Enteric Tablet PO 81 mg DAILY MALIHA Administration Azelastine HCl 2 spray 08/11/24 09:00 08/15/24 08:31 Azelastine Hcl Nasal 0.1% 137 Mcg/Spr 30 Ml Btl NASAL 2 spray Q12H MALIHA Administration Carisoprodol 350 mg 08/11/24 09:00 08/15/24 12:16 Carisoprodol (*Crx) 350 Mg Tablet PO 350 mg TID MALIHA Administration Ferrous Sulfate 325 mg 08/11/24 09:00 08/15/24 08:31 Ferrous Sulfate [address] PO 325 mg BID MALIHA Administration Meclizine HCl 25 mg 08/11/24 09:00 08/15/24 12:16 Meclizine Hcl 25 Mg Tablet PO 25 mg QID MALIHA Administration Metoclopramide HCl 10 mg 08/11/24 08:00 08/15/24 11:32 Metoclopramide Hcl 10 Mg Tablet PO 10 mg TIDAC MALIHA Administration Metronidazole 500 mg 08/13/24 11:00 08/15/24 13:04 Metronidazole 500 Mg Tablet PO 08/18/24 06:01 500 mg Q8HR MALIHA Administration Pantoprazole Sodium 40 mg 08/11/24 09:00 08/15/24 08:30 Pantoprazole 40 Mg Tablet PO 40 mg DAILY MALIHA Administration Pravastatin Sodium 20 mg 08/11/24 21:00 08/14/24 20:04 Pravastatin Sodium 20 Mg Tablet PO 20 mg QHS MALIHA Administration Propranolol HCl 10 mg 08/11/24 09:00 08/15/24 08:30 Propranolol Hcl 10 Mg Tablet PO 10 mg Q12H MALIHA Administration Telmisartan 40 mg 08/11/24 09:00 08/15/24 08:31 Telmisartan 40 Mg Tablet PO 40 mg DAILY MALIHA Administration Trimethoprim/Sulfamethoxazole 1 tab 08/13/24 11:00 08/15/24 08:31 Sulfamethoxazole/Trimethoprim 800/160 Mg Ds Tablet PO 08/17/24 21:01 1 tab Q12HR MALIHA Administration Radiology Results: ITS Impressions Chest X-Ray 08/10/24 22:04 IMPRESSION: Cardiomegaly. Congestive myron. No acute lung lesion seen. Abdomen/Pelvis CT 08/11/24 05:41 Impression: No abscess identified. Shotty right inguinal lymph nodes are present, nonspecific. Asymmetric enlargement right piriformis muscle as compared to left. This could reflect asymmetric left-sided atrophy versus hypertrophy of the right side. Correlate clinically. No distinct mass evident. Labs Labs: Laboratory Results - last 24 hr 08/15/24 05:08 WBC 11.5 H RBC 4.18 L Hgb 10.5 L Hct 33.6 L MCV 80.4 MCH 25.1 L MCHC 31.3 L RDW 17.1 H Plt Count 469 H MPV 9.2 Sodium 127 L Potassium 4.8 Chloride 98 Carbon Dioxide 24 Anion Gap 5 BUN 9 Creatinine 0.68 L Estim Creat Clear Calc Not Reportable Estimated GFR > 60 Glucose 107 Calcium 7.9 L Total Bilirubin 0.5 AST 43 H ALT 20 Alkaline Phosphatase 50 Total Protein 6.0 L Albumin 2.8 L Quality VTE Prophylaxis VTE prophylaxis: pharmacologic ordered
[2024-08-15 13:41] VITALS: BP 146/61; PULSE 90; RESP 14; TEMP 36.7; O2SAT 100
[2024-08-15 20:51] VITALS: BP 131/62; PULSE 71; RESP 18; TEMP 36.7; O2SAT 94
[2024-08-15 21:11] VITALS: PULSE 71
[2024-08-15] MEDS: PRAVASTATIN SODIUM 20 MG TABLET PO (21:11)
[2024-08-16 04:32] LABS: Alanine Aminotransferase 21 U/L (6-35); Albumin Level 2.9 g/dL (3.5-5.1); Alkaline Phosphatase 69 U/L (38-126); Anion Gap 6 mmol/L (4-12); Aspartate Amino Transferase 34 U/L (14-36); Bilirubin,Total 0.2 mg/dL (0.2-1.3); Blood Urea Nitrogen 6 mg/dL (7-17); Carbon Dioxide 23 mmol/L (22-30); Chloride 101 mmol/L (98-107); Estimated Glomerular Filt Rate > 60; Glucose 113 mg/dL (65-110); Potassium 4.2 mmol/L (3.4-5.0); Sodium 130 mmol/L (137-145)
[2024-08-16 05:57] VITALS: BP 100/59; PULSE 62; RESP 20; TEMP 36.8; O2SAT 95
[2024-08-16] MEDS: metroNIDAZOLE 500 MG TABLET PO ×2 (06:17→13:23)
[2024-08-16] MEDS: METOCLOPRAMIDE HCL 10 MG TABLET PO ×2 (06:17→13:24)
[2024-08-16] MEDS: ACETAMINOPHEN 325 MG TABLET 650 MG PO (07:47)
[2024-08-16] MEDS: MECLIZINE HCL 25 MG TABLET PO ×2 (07:48→13:24)
[2024-08-16 09:34] VITALS: PULSE 72
[2024-08-16] MEDS: PROPRANOLOL HCL 10 MG TABLET PO (09:34)
[2024-08-16] MEDS: SULFAMETHOXAZOLE/TRIMETHOPRIM 800/160 MG DS TABLET 1 TAB PO (09:34)
[2024-08-16] MEDS: carisoprodoL (*CRX) 350 MG TABLET PO ×2 (09:34→13:24)
[2024-08-16] MEDS: FERROUS SULFATE 325 MG TABLET DR PO (09:34)
[2024-08-16] MEDS: TELMISARTAN 40 MG TABLET PO (09:34)
[2024-08-16] MEDS: PANTOPRAZOLE 40 MG TABLET PO (09:34)
[2024-08-16] MEDS: ASPIRIN 81 MG ENTERIC TABLET PO (09:34)
[2024-08-16] MEDS: amLODIPine BESYLATE 2.5 MG TABLET PO (09:35)
[2024-08-16] MEDS: AZELASTINE HCL NASAL 0.1% 137 MCG/SPR 30 ML BTL 2 SPRAY NASAL (09:35)
[2024-08-16 13:28] VITALS: BP 121/51; PULSE 64; RESP 18; TEMP 36.2; O2SAT 96
--- NOTE | 2024-08-16 15:23 | P.PNIM_ITS ---
Progress Note: A&P Assessment and Plan (1) Cellulitis: Code(s): L03.90 - Cellulitis, unspecified Status: Acute Assessment and Plan: Redness and swelling of the skin on her lower abdomen and groin with malodorous discharge. CT abdomen/pelvis showed no abscess - Antibiotic: Ancef started on 08/10, transitioned to Bactrim and Flagyl on 08/13. Discussed with ID pharmacy. - Blood cultures obtained on 08/10: NGTD - Groin wound culture: bacteroides - Monitor vital signs, I&Os, neuro status and patient is a fall risk - Monitor serum electrolytes, CBC, cultures, WBC and temp curve - Wound consulted, appreciate recommendations: antifungal powder Significant improvement. continue PO antibiotics. trend labs (2) Intertriginous candidiasis: Code(s): B37.2 - Candidiasis of skin and nail Status: Acute Assessment and Plan: Redness and swelling of the skin on her lower abdomen and groin with malodorous discharge. Received a dose of p.o. fluconazole in the ED. Wound nurse has been consulted for further recommendations: antifungal powder Improving. (3) Generalized weakness: Code(s): R53.1 - Weakness Status: Acute Assessment and Plan: Falls are mostly due to her left knee giving out as she is unable to use her cane in the home secondary to hoarding conditions. CK elevated on admission at 3135, received 1L NS. Electrolytes and kidney function stable. Knee, left XR on 08/03 showed no acute abnormalities but severe tricompartmental osteoarthritis and old healed fractures of keshawn proximal tibia and fibula CT abdomen/pelvis showed no abscess but did note asymmetric enlargement right piriformis muscle as compared to left. This could reflect asymmetric left-sided atrophy versus hypertrophy of the right side PT/OT consulted: SNF Patient will likely need and benefit from rehab placement and she will need her home cleaned prior to return Was to obtain a cortisone shot with Dr. Ahuja on . Discussed patient with Ortho in agreement that the cortisone shot is likely not the best course of action at this time given patient's cocurrent infection. Will continue to monitor and potentially get the shot later on admission if infection improves. continue working with PT/OT (4) Incontinence associated dermatitis: Code(s): L25.8 - Unspecified contact dermatitis due to other agents; R32 - Unspecified urinary incontinence Status: Acute Assessment and Plan: She admitted that she has difficulties getting to the bathroom due to her home situation and that is not unusual for her to be incontinent. Per chart review patient arrived to the emergency department in underwear which was soiled with stool and urine. Urinalysis is positive for 2+ protein, trace glucose, 1+ ketones, trace leukocyte esterase, 6-10 RBC and WBC, and occasional squamous cells. No bacteria seen. Given fluconazole in ED Started on Ancef, transitioned to oral bactrim and flagyl -continue it Urine culture negative (5) Prediabetes: Code(s): R73.03 - Prediabetes Status: Acute Assessment and Plan: - monitor glucose levels with CMP, well controlled at this time - home medication - none, trying to control with diet/exercise - A1C 6.4 on 07/10/24 Glucose remains well controlled. Monitor. (6) Iron deficiency anemia: Code(s): D50.9 - Iron deficiency anemia, unspecified Status: Acute Assessment and Plan: H/H 11.3/36.8 on admission, appears around baseline Resumed patients iron supplementation No signs of active bleeding Monitor (7) Essential (primary) hypertension: Code(s): I10 - Essential (primary) hypertension Status: Acute Assessment and Plan: Chronic, continue home medications - amlodipine 2.5 mg daily - propranolol 10 mg BID, per PCP note more related to patients tremors - telmisartan 40 mg daily - blood pressures stable, continue to monitor -reviewed and stable Time Spent With Patient Time with patient: 25 - 35 minutes Subjective Date/time seen: 08/16/24 15:23 Interval history: 69-year-old female with prediabetes, hypertension, hyperlipidemia, and Meniere's disease who presented to the hospital via EMS from home for evaluation after a fall. Believes falls are mostly due to her left knee giving out as she is unable to use her cane in the home secondary to hoarding conditions. She also noted redness and swelling of the skin on her lower abdomen and groin with malodorous discharge. She admitted that she has difficulties getting to the bathroom due to her home situation and that is not unusual for her to be incontinent. NO acute events overnight. Care coordination is following with placement - apparently placement pending insurance approval. Eating and drinking ok, no n/ v/d. Review of Systems Review of Systems: 12 systems were reviewed and are negativ e except for as per HPI. All systems reviewed & are unremarkable except as noted in HPI and below Exam Narrative: General: obese female in no acute respiratory distress who is nontoxic appearing, sitting up in bed. HEENT: Normocephalic. Atraumatic. Extraocular movement intact. Sclera clear and anicteric. No facial asymmetry. Chest: Lungs are clear to auscultation bilaterally. No wheezes or crackles. CV: Heart was regular rate and rhythm. S1-S2. No murmurs, gallops, or rubs. Abd: Abdomen was soft. Positive bowel sounds. Ext: No clubbing, cyanosis, or edema. DP pulses bilaterally. Neuro: Patient is alert. Speech is clear. Skin: Improving, large tender and erythematous area to the lower abdomen extending into groin, more so on the right. Noted emerald within the folds. Minimal weeping. Const: General: comfortable Objective Data Vital Signs Vital Signs: Vital Signs - 24 hr 08/15/24 20:00 08/15/24 20:51 08/15/24 21:11 Temperature 98.1 F Pulse Rate 71 71 Respiratory Rate 18 Blood Pressure 131/62 Pulse Oximetry 94 Oxygen Delivery Room Air 08/16/24 05:57 08/16/24 08:00 08/16/24 09:34 Temperature 98.3 F Pulse Rate 62 72 Respiratory Rate 20 Blood Pressure 100/59 L Pulse Oximetry 95 Oxygen Delivery Room Air 08/16/24 13:28 Temperature 97.2 F L Pulse Rate 64 Respiratory Rate 18 Blood Pressure 121/51 L Pulse Oximetry 96 Oxygen Delivery Intake/Output Intake/Output: Intake & Output 08/13/24 08/14/24 08/15/24 08/16/24 23:59 23:59 23:59 23:59 Intake Total 2630 1950 2920 880 Output Total 930 4830 5117 1450 Balance 1700 525 744 -792 Meds/Results Medications: Active Medications Generic Name Dose Route Start Last Admin Trade Name Freq PRN Reason Stop Dose Admin Acetaminophen 650 mg 08/11/24 03:38 08/16/24 07:47 Acetaminophen 325 Mg Tablet PO 650 mg Q6H PRN Administration Mild Pain (1-3) or Fever Albuterol 1 puff 08/11/24 07:48 Albuterol Sulfate (*Sp) Aerosol 1 Puff INHALATION Q6H PRN shortness of breath or wheezing Amlodipine Besylate 2.5 mg 08/11/24 09:00 08/16/24 09:35 Amlodipine Besylate 2.5 Mg Tablet PO 2.5 mg QAM MALIHA Administration Aspirin 81 mg 08/11/24 09:00 08/16/24 09:34 Aspirin 81 Mg Enteric Tablet PO 81 mg DAILY MALIHA Administration Azelastine HCl 2 spray 08/11/24 09:00 08/16/24 09:35 Azelastine Hcl Nasal 0.1% 137 Mcg/Spr 30 Ml Btl NASAL 2 spray Q12H MALIHA Administration Carisoprodol 350 mg 08/11/24 09:00 08/16/24 13:24 Carisoprodol (*Crx) 350 Mg Tablet PO 350 mg TID MALIHA Administration Ferrous Sulfate 325 mg 08/11/24 09:00 08/16/24 09:34 Ferrous Sulfate [address] PO 325 mg BID MALIHA Administration Meclizine HCl 25 mg 08/11/24 09:00 08/16/24 13:24 Meclizine Hcl 25 Mg Tablet PO 25 mg QID MALIHA Administration Metoclopramide HCl 10 mg 08/11/24 08:00 08/16/24 13:24 Metoclopramide Hcl 10 Mg Tablet PO 10 mg TIDAC MALIHA Administration Metronidazole 500 mg 08/13/24 11:00 08/16/24 13:23 Metronidazole 500 Mg Tablet PO 08/18/24 06:01 500 mg Q8HR MALIHA Administration Pantoprazole Sodium 40 mg 08/11/24 09:00 08/16/24 09:34 Pantoprazole 40 Mg Tablet PO 40 mg DAILY MALIHA Administration Pravastatin Sodium 20 mg 08/11/24 21:00 08/15/24 21:11 Pravastatin Sodium 20 Mg Tablet PO 20 mg QHS MALIHA Administration Propranolol HCl 10 mg 08/11/24 09:00 08/16/24 09:34 Propranolol Hcl 10 Mg Tablet PO 10 mg Q12H MALIHA Administration Telmisartan 40 mg 08/11/24 09:00 08/16/24 09:34 Telmisartan 40 Mg Tablet PO 40 mg DAILY MALIHA Administration Trimethoprim/Sulfamethoxazole 1 tab 08/13/24 11:00 08/16/24 09:34 Sulfamethoxazole/Trimethoprim 800/160 Mg Ds Tablet PO 08/17/24 21:01 1 tab Q12HR MALIHA Administration Radiology Results: ITS Impressions Chest X-Ray 08/10/24 22:04 IMPRESSION: Cardiomegaly. Congestive myron. No acute lung lesion seen. Abdomen/Pelvis CT 08/11/24 05:41 Impression: No abscess identified. Shotty right inguinal lymph nodes are present, nonspecific. Asymmetric enlargement right piriformis muscle as compared to left. This could reflect asymmetric left-sided atrophy versus hypertrophy of the right side. Correlate clinically. No distinct mass evident. Labs Labs: Laboratory Results - last 24 hr 08/16/24 04:11 Sodium 130 L Potassium 4.2 Chloride 101 Carbon Dioxide 23 Anion Gap 6 BUN 6 L Creatinine 0.63 L Estim Creat Clear Calc Not Reportable Estimated GFR > 60 Glucose 113 H Calcium 8.0 L Total Bilirubin 0.2 AST 34 ALT 21 Alkaline Phosphatase 69 Total Protein 6.0 L Albumin 2.9 L Quality VTE Prophylaxis VTE prophylaxis: pharmacologic ordered
--- NOTE | 2024-08-16 15:38 | P.DS_ITS ---
DS: Admitting Diagnosis Discharge Date 08/16 Admitting Diagnosis fall DS: Discharge Diagnosis Discharge Diagnosis (1) Cellulitis: Code(s): L03.90 - Cellulitis, unspecified Status: Acute (2) Intertriginous candidiasis: Code(s): B37.2 - Candidiasis of skin and nail Status: Acute (3) Generalized weakness: Code(s): R53.1 - Weakness Status: Acute (4) Incontinence associated dermatitis: Code(s): L25.8 - Unspecified contact dermatitis due to other agents; R32 - Unspecified urinary incontinence Status: Acute (5) Prediabetes: Code(s): R73.03 - Prediabetes Status: Acute (6) Iron deficiency anemia: Code(s): D50.9 - Iron deficiency anemia, unspecified Status: Acute (7) Essential (primary) hypertension: Code(s): I10 - Essential (primary) hypertension Status: Acute DS: Summary Hospital Course Hospital Course: 69-year-old female with prediabetes, hypertension, hyperlipidemia, and Meniere's disease who presented to the hospital via EMS from home for evaluation after a fall. Believes falls are mostly due to her left knee giving out as she is unable to use her cane in the home secondary to hoarding conditions. She also noted redness and swelling of the skin on her lower abdomen and groin with malodorous discharge. SEveral issues were addressed: # cellulitis Redness and swelling of the skin on her lower abdomen and groin with malodorous discharge. CT abdomen/pelvis showed no abscess - Antibiotic: Ancef started on 08/10, transitioned to Bactrim and Flagyl on 08/13. Discussed with ID pharmacy. - Blood cultures obtained on 08/10: NGTD - Groin wound culture: bacteroides - Monitor vital signs, I&Os, neuro status and patient is a fall risk - Monitor serum electrolytes, CBC, cultures, WBC and temp curve - Wound consulted, appreciate recommendations: antifungal powder Significant improvement. continue PO antibiotics: has 5 more doses of flagyl left, and 3 more doses of bactrum- will send RX to complete the course # Candidiasis of skin and nail Redness and swelling of the skin on her lower abdomen and groin with malodorous discharge. Received a dose of p.o. fluconazole in the ED. Wound nurse has been consulted for further recommendations: antifungal powder # Generalized weakness: Falls are mostly due to her left knee giving out as she is unable to use her cane in the home secondary to hoarding conditions. CK elevated on admission at 3135, received 1L NS. Electrolytes and kidney function stable. Knee, left XR on 08/03 showed no acute abnormalities but severe tricompartmental osteoarthritis and old healed fractures of keshawn proximal tibia and fibula CT abdomen/pelvis showed no abscess but did note asymmetric enlargement right piriformis muscle as compared to left. This could reflect asymmetric left-sided atrophy versus hypertrophy of the right side PT/OT consulted: SNF # Unspecified contact dermatitis due to other agents; R32 - Unspecified urinary incontinence She admitted that she has difficulties getting to the bathroom due to her home situation and that is not unusual for her to be incontinent. Per chart review patient arrived to the emergency department in underwear which was soiled with stool and urine. Urinalysis is positive for 2+ protein, trace glucose, 1+ ketones, trace leukocyte esterase, 6-10 RBC and WBC, and occasional squamous cells. No bacteria seen. Given fluconazole in ED Started on Ancef, transitioned to oral bactrim and flagyl -continue it Urine culture negative # Prediabetes: - monitor glucose levels with CMP, well controlled at this time - home medication - none, trying to control with diet/exercise - A1C 6.4 on 07/10/24 # Iron deficiency anemia: H/H 11.3/36.8 on admission, appears around baseline Resumed patients iron supplementation No signs of active bleeding Status at Discharge Functional status at discharge: uses cane/walker Overall status at discharge: patient is progressing back to baseline Time Spent with Patient Time attestation: Total time spent providing and/or coordinating discharge services: Time spent: Greater than 30 minutes Exam Narrative: General: obese female in no acute respiratory distress who is nontoxic appearing, sitting up in bed. HEENT: Normocephalic. Atraumatic. Extraocular movement intact. Sclera clear and anicteric. No facial asymmetry. Chest: Lungs are clear to auscultation bilaterally. No wheezes or crackles. CV: Heart was regular rate and rhythm. S1-S2. No murmurs, gallops, or rubs. Abd: Abdomen was soft. Positive bowel sounds. Ext: No clubbing, cyanosis, or edema. DP pulses bilaterally. Neuro: Patient is alert. Speech is clear. Skin: Improving, large tender and erythematous area to the lower abdomen extending into groin, more so on the right. Noted emerald within the folds. Minimal weeping. Const: General: comfortable DS: Data Data Completed and Pending Labs on day of discharge: Labs from last 24 hours 08/16/24 04:11 Sodium 130 L Potassium 4.2 Chloride 101 Carbon Dioxide 23 Anion Gap 6 BUN 6 L Creatinine 0.63 L Estim Creat Clear Calc Not Reportable Estimated GFR > 60 Glucose 113 H Calcium 8.0 L Total Bilirubin 0.2 AST 34 ALT 21 Alkaline Phosphatase 69 Total Protein 6.0 L Albumin 2.9 L Discharge Plan Discharge Attending physician on discharge: Cesar Arroyo Discharging Clinician: Gladys Morris Patient Disposition: SNF Activity: may shower Diet: diabetic Discharge Instructions: Please finish antibiotics prescribed and use ntifungal powder to skin folds. keep area clean and dry. See discharge summary for more details of hospitalization and treatment. Patient Language: Estonian Stand Alone Forms: General Discharge Information Discharge Medications: New metronidazole 500 mg Tablet 500 mg PO Q8HR Qty: 5 0RF sulfamethoxazole-trimethoprim 800-160 mg Tablet 1 tab PO Q12HR Qty: 3 0RF Continued aspirin 81 mg tablet,delayed release (DR/EC) 81 mg PO DAILY furosemide 20 mg tablet 20 mg PO QAM PRN (Reason: edema) Qty: 90 0RF pravastatin 20 mg tablet 20 mg PO QHS Qty: 90 1RF clindamycin phosphate 1 % gel 1 applic topical BID Qty: 60 3RF albuterol sulfate 90 mcg/actuation HFA aerosol inhaler 1 puff inhalation Q6H PRN (Reason: shortness of breath or wheezing) propranolol 10 mg tablet 10 mg PO Q12H Qty: 180 1RF azelastine 137 mcg (0.1 %) spray,non-aerosol 2 spray intranasal Q12H Qty: 30 4RF Rx Instructions: administer into each nostril ergocalciferol (vitamin D2) 1,250 mcg (50,000 unit) capsule See Rx Instructions .ROUTE .COMPLEX Qty: 12 2RF Dose Instruction: Take 1 capsule by mouth once a week Rx Instructions: Take 1 capsule by mouth once a week fexofenadine-pseudoephedrine [Kathy-D 12 Hour] 60-120 mg tablet extended release 12 hr See Rx Instructions .ROUTE .COMPLEX Qty: 60 5RF Dose Instruction: TAKE 1 TABLET BY MOUTH EVERY 12 HOURS NEEDED FOR ALLERGIES Rx Instructions: TAKE 1 TABLET BY MOUTH EVERY 12 HOURS NEEDED FOR ALLERGIES metoclopramide HCl 10 mg tablet See Rx Instructions .ROUTE .COMPLEX Qty: 270 1RF Dose Instruction: TAKE 1 TABLET BY MOUTH THREE TIMES DAILY Rx Instructions: TAKE 1 TABLET BY MOUTH THREE TIMES DAILY betamethasone dipropionate 0.05 % ointment 1 applic topical DAILY PRN (Reason: itching) Qty: 45 5RF esomeprazole magnesium 40 mg capsule,delayed release(DR/EC) 40 mg PO DAILY Qty: 90 1RF telmisartan 40 mg tablet 40 mg PO DAILY Qty: 90 1RF amlodipine 2.5 mg tablet See Rx Instructions .ROUTE .COMPLEX Qty: 90 1RF Dose Instruction: Take 1 tablet by mouth once daily Rx Instructions: Take 1 tablet by mouth once daily carisoprodol 350 mg tablet 350 mg PO TID Qty: 270 1RF ferrous sulfate 324 mg (65 mg iron) tablet,delayed release (DR/EC) 324 mg PO BID Qty: 180 1RF clotrimazole 1 % cream See Rx Instructions .ROUTE .COMPLEX Qty: 45 0RF Dose Instruction: APPLY CREAM TOPICALLY EVERY 12 HOURS Rx Instructions: APPLY CREAM TOPICALLY EVERY 12 HOURS meclizine 25 mg tablet See Rx Instructions .ROUTE .COMPLEX Qty: 120 2RF Dose Instruction: Take 1 tablet by mouth 4 times daily Rx Instructions: Take 1 tablet by mouth 4 times daily Date of admission: 08/11/24 03:18 Primary Care Provider: Sosa Tellez Admitting Provider: Elo Tucker Attending physician on admission: Dee Booker Condition: Stable Quality VTE Prophylaxis VTE prophylaxis: pharmacologic ordered Hospitalist MIPS Heart Failure (Exclusion) Patient has history of Heart Transplant or Left Ventricular Assistive Device?: No IF YES, STOP HERE Heart Failure (Qualifier) Patient has current or prior documentation of LVEF less than or equal to 40%, or mod/servere depressed LVSF?: No IF NO, STOP HERE
== END 2024-08-16 17:15 | DRG 603 ==
LOC: ANHED 08-11 03:26 → ANH2MED 08-11 03:38
PROVIDERS: Physician Assistant; Student in an Organized Health Care Education/Training Program; Admitting Provider Internal Medicine; Emergency Provider Emergency Medicine; PCP Family Medicine; Visit Provider Nurse Practitioner
DX: L03.311 Cellulitis of abdominal wall (principal); Z68.43 Body mass index [BMI] 50.0-59.9, adult; R53.1 Weakness; R62.7 Adult failure to thrive; R73.03 Prediabetes; B96.89 Other specified bacterial agents as the cause of diseases classified elsewhere; E66.9 Obesity, unspecified; I10 Essential (primary) hypertension; D50.9 Iron deficiency anemia, unspecified; E78.2 Mixed hyperlipidemia; Z60.8 Other problems related to social environment; L25.8 Unspecified contact dermatitis due to other agents; R32 Unspecified urinary incontinence
CPT/HCPCS: 36415; 71045; 74177; 80053; 81001; 82550; 83605; 85025; 85027; 85610; 85730; 86140; 87040; 87070; 87075; 87086; 87205; 96361; 96365; 97110; 97162; 97167; 97530; 97535; 99285; A9270; J0690; J1650; J7030; Q9967